=== PATIENT | male | born 1965 | race Caucasian/White ===

== ENCOUNTER 2021-02-20 21:05 | Inpatient (IN) ==
[2021-02-20] MEDS ORDERED: cefTRIAXone SODIUM 2,000 MG/70 ML BAG IV STA (22:38)
--- NOTE | 2021-02-20 22:44 | Emergency Department Note ---
Impression & Plan Cellulitis, Diabetic foot ulcer associated with type 2 diabetes mellitus, Lymphangitis ED Provider Note NAME: EMIR EVANS AGE: 56 SEX: M : 1965 ARRIVES VIA: Walk-In INFORMANT: Patient ED PROVIDER(S): Tristian Price DO CHIEF COMPLAINT: right foot pain HPI: Patient is a 56-year-old male who presents the ER for right foot pain. He notes redness that started within the past 24 to 48 hours. He is having drainage and discharge from his right fifth toe. He notes is also become discolored today. He follows with wound care clinic for the left foot. Denies any headache or change in vision. He admits to chills. No chest pain or shortness of breath. No nausea vomiting or diarrhea. No dysuria urgency or frequency. ROS: See above HPI for pertinent positives & negatives. A total of 10 systems reviewed and were otherwise negative. PAST MEDICAL HISTORY:See Below PAST SURGICAL HISTORY:See Below FAMILY HISTORY:See Below SOCIAL HISTORY:See Below HOME MEDICATIONS:See Below ALLERGIES:See Below VITALS:See Below PHYSICAL EXAMINATION: GENERAL: Sitting up in bed, alert, well appearing, well nourished, no distress, non-toxic EYE EXAM: normal conjunctiva. LUNGS: Clear to auscultation. Normal chest wall mechanics HEART: no murmurs, S1 normal and S2 normal ABDOMEN: abdomen soft, non-tender, normo-active bowel sounds, no masses, no rebound or guarding. UPPER EXTREMITIES: upper extremities are grossly normal. LOWER EXTREMITIES: Right foot with erythema tracking up to the ankle and erythema tracking up in the line above the ankle. Right fifth digit with purple discoloration and green purulent with serous sanguinous drainage coming out of a pinpoint hole at the just proximal to the callus on the right lateral fifth digit NEURO EXAM: Normal sensorium, cranial nerves II-XII grossly intact, normal speech, no gross weakness of arms, no gross weakness of legs. MEDICAL DECISION MAKING: Patient is a 56-year-old male who presents the ER for diabetic foot ulcer on the right toe which is having green purulent drainage. He has erythema of the foot streaking from this toe as well as lymphangitic spread up the vázquez. Labs show mild leukocytosis of 13,000. No significant anemia. BMP with mild hyponatremia 131. LFTs bilirubin was unremarkable. Covid was negative. Patient was given 2 g of Rocephin. He was updated bedside. Culture was taken. X-rays of the right foot question if there is some erosion/osteo-. Patient was discussed hospice admitted for further work-up. Triage Nursing notes reviewed. Limited review of prior medical records performed Vital Signs: reviewed and remarkable for HTN Differential diagnosis: Cellulitis, abscess, MRSA infection, DVT, necrotizing fasciitis, dermatitis, drug eruption, allergic reaction, as well as other pathologies. ER treatment provided: See below Diagnostics interpreted by me: ECG: none Cardiac Monitoring: An order was placed for continuous cardiac monitoring. The monitor shows a rate of 101 with sinus rhythm. Laboratory studies: As stated above and show below. Imaging studies: X-rays of the right fifth toe show some erosive changes of the right distal fifth digit per my read Consultation(s): Discussed with Brenden Wyatt for further evaluation Procedures: none Past Med/Surg History Medical History Corns and callosities Diabetic foot ulcer associated with type 2 diabetes mellitus DM (diabetes mellitus) Type 2 diabetes mellitus with diabetic polyneuropathy Social History Smoking Status: Never smoker Preferred Language: Urdu Visual Impairment: Limited Hearing Ability: Normal Beliefs That Will Affect Care: None Current Living Situation: Other Current Living Situation Comment: lives with girlfriend current occupational status: employed 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 Feels Safe at Home: Yes Allergies Allergies Allergy/AdvReac Type Severity Reaction Status Date / Time No Known Allergies Allergy Unknown Verified 02/20/21 23:18 Home Meds Home Medications Medication Instructions Recorded Confirmed atorvastatin 20 mg tablet 20 mg PO DAILY 12/13/20 02/20/21 lisinopril 5 mg tablet 5 mg PO DAILY 12/13/20 02/20/21 metformin 1,000 mg tablet 1,000 mg PO BID 12/13/20 02/20/21 Results & Data (ED) Vital Signs Vital Signs - 24 hr 02/20/21 21:17 Temperature 37 C Temperature Source Temporal Artery Scan Pulse Rate 105 H Respiratory Rate 20 Respiratory Effort / Characteristics Non-Labored Spontaneous Respiratory Depth Normal Blood Pressure 168/91 H Blood Pressure Mean 116 Pulse Oximetry 97 Oxygen Delivery Method Room Air Sepsis Recent Fever Within 48 Hours No Sepsis New/Unexplained Change in Mental Status No Sepsis Action Taken by Nursing No Action Required Laboratory Data Result diagrams: 02/20/21 22:55 02/20/21 22:55 Lab Results 02/20/21 02/20/21 02/20/21 Range/Units 22:55 22:55 23:00 WBC 13.21 H (4.8-10.8) K/uL RBC 5.00 (4.7-6.1) M/uL Hgb 15.9 (14.0-18.0) g/dL Hct 45.6 (42-52) % MCV 91.2 (80-100) fL MCH 31.8 (25-34) pg MCHC 34.9 (32-36) g/dL RDW Std Deviation 43.1 (36.4-46.3) fL RDW Coeff of Lalitha 13.0 (11.5-14.5) % Plt Count 226 (130-400) K/uL MPV 9.2 (7.4-10.4) fL Immature Gran % (Auto) 0.3 % Neut % (Auto) 79.8 % Lymph % (Auto) 12.0 % [place] % (Auto) 7.4 % Eos % (Auto) 0.3 % Baso % (Auto) 0.2 % Neut # (Auto) 10.55 H (1.4-6.5) K/uL Lymph # (Auto) 1.58 (1.2-3.4) K/uL [place] # (Auto) 0.98 H (0.11-0.59) K/uL Eos # (Auto) 0.04 (0-0.5) K/uL Baso # (Auto) 0.02 (0-0.2) K/uL Immature Gran # (Auto) 0.04 H (0.00-0.02) K/uL Sodium 131 L (136-145) mmol/L Potassium 4.2 (3.5-5.1) mmol/L Chloride 100 (98-107) mmol/L Carbon Dioxide 24 (21-32) mmol/L Anion Gap 7.0 (3-11) BUN 12 (7-18) mg/dl Creatinine 1.01 (0.6-1.4) mg/dl Est Cr Clr Drug Dosing 102.1 ml/min Est GFR ( Amer) 96.6 ml/min Est GFR (Non-Af Amer) 83.3 ml/min BUN/Creatinine Ratio 12.1 (10-20) Glucose 286 H (70-99) mg/dl Calcium 9.2 (8.5-10.1) mg/dl Total Bilirubin 0.7 (0.2-1) mg/dl AST 11 L (15-37) U/L ALT 18 (12-78) U/L Alkaline Phosphatase 102 (45-117) U/L Total Protein 7.9 (6.4-8.2) gm/dl Albumin 3.7 (3.4-5.0) gm/dl Globulin 4.2 H (2.5-4.0) gm/dl Albumin/Globulin Ratio 0.9 (0.9-2) COVID-19 Eval Order Covid19 at [facility] SARS-CoV-2 (PCR) (Negative) 02/20/21 Range/Units 23:00 WBC (4.8-10.8) K/uL RBC (4.7-6.1) M/uL Hgb (14.0-18.0) g/dL Hct (42-52) % MCV (80-100) fL MCH (25-34) pg MCHC (32-36) g/dL RDW Std Deviation (36.4-46.3) fL RDW Coeff of Lalitha (11.5-14.5) % Plt Count (130-400) K/uL MPV (7.4-10.4) fL Immature Gran % (Auto) % Neut % (Auto) % Lymph % (Auto) % [place] % (Auto) % Eos % (Auto) % Baso % (Auto) % Neut # (Auto) (1.4-6.5) K/uL Lymph # (Auto) (1.2-3.4) K/uL [place] # (Auto) (0.11-0.59) K/uL Eos # (Auto) (0-0.5) K/uL Baso # (Auto) (0-0.2) K/uL Immature Gran # (Auto) (0.00-0.02) K/uL Sodium (136-145) mmol/L Potassium (3.5-5.1) mmol/L Chloride (98-107) mmol/L Carbon Dioxide (21-32) mmol/L Anion Gap (3-11) BUN (7-18) mg/dl Creatinine (0.6-1.4) mg/dl Est Cr Clr Drug Dosing ml/min Est GFR ( Amer) ml/min Est GFR (Non-Af Amer) ml/min BUN/Creatinine Ratio (10-20) Glucose (70-99) mg/dl Calcium (8.5-10.1) mg/dl Total Bilirubin (0.2-1) mg/dl AST (15-37) U/L ALT (12-78) U/L Alkaline Phosphatase (45-117) U/L Total Protein (6.4-8.2) gm/dl Albumin (3.4-5.0) gm/dl Globulin (2.5-4.0) gm/dl Albumin/Globulin Ratio (0.9-2) COVID-19 Eval Order SARS-CoV-2 (PCR) NEGATIVE (Negative) Administered Medications Discontinued Medications Ceftriaxone Sodium (Rocephin) 2,000 mg in 70 mls @ 140 mls/hr IV NOW STA Stop: 02/20/21 23:07 Last Infusion: 02/21/21 00:53 Dose: 0 mls/hr Documented by: [id number] Admin: 02/20/21 23:14 Dose: 140 mls/hr Documented by: [id number] Discharge Plan Visit Data Chief Complaint: Toe Injury/Pain Stated Complaint: RT TOE IS BLUE/SWOLLEN ED Provider: Tristian Price Discharge Problem: Cellulitis, Diabetic foot ulcer associated with type 2 diabetes mellitus, Lymphangitis Discharge Instructions Interventions: ED Discharge Assessment Last Done: 02/21/21 01:37 Forms Stand Alone Forms: My [facility] [employer] Prescriptions Prescriptions: No Action atorvastatin 20 mg tablet 20 mg PO DAILY RF: 0 metformin 1,000 mg tablet 1,000 mg PO BID RF: 0 lisinopril 5 mg tablet 5 mg PO DAILY RF: 0 Referrals Referrals: PCP,NO [Physician] -
[2021-02-20 23:10] LABS: Basophils # (auto) 0.02 K/uL (0-0.2); Basophils % (auto) 0.2 %; Eosinophils # (auto) 0.04 K/uL (0-0.5); Eosinophils % (auto) 0.3 %; Hematocrit (blood only) 45.6 % (42-52); Hemoglobin 15.9 g/dL (14.0-18.0); Immature Granulocytes # (auto) 0.04 K/uL (0.00-0.02); Immature Granulocytes % (auto) 0.3 %; Lymphocytes # (auto) 1.58 K/uL (1.2-3.4); Mean Corpuscular Hemoglobin 31.8 pg (25-34); Mean Corpuscular Hgb Conc 34.9 g/dL (32-36); Mean Corpuscular Volume 91.2 fL (80-100); Mean Platelet Volume 9.2 fL (7.4-10.4); Monocytes # (auto) 0.98 K/uL (0.11-0.59); Monocytes % (auto) 7.4 %; Neutrophils # (auto) 10.55 K/uL (1.4-6.5); Neutrophils % (auto) 79.8 %; Platelet Count 226 K/uL (130-400); RDW Standard Deviation 43.1 fL (36.4-46.3); White Blood Count 13.21 K/uL (4.8-10.8)
[2021-02-20 23:28] LABS: Albumin Level 3.7 gm/dl (3.4-5.0); BUN Creatinine Ratio 12.1 (10-20); Calcium 9.2 mg/dl (8.5-10.1); Creatinine Clr Calc Pharmacy 102.1 ml/min; Est GFR (African American) 96.6 ml/min; Est GFR (Non-African American) 83.3 ml/min; Potassium 4.2 mmol/L (3.5-5.1)
[2021-02-20 23:31] LABS: Albumin Globulin Ratio 0.9 (0.9-2); Bilirubin,Total 0.7 mg/dl (0.2-1); Globulin 4.2 gm/dl (2.5-4.0); Total Protein 7.9 gm/dl (6.4-8.2)
[2021-02-21] MEDS ORDERED: PIPERACILL/TAZOBAC CONSULT ACTIVE PRN (02:39)
[2021-02-21] MEDS ORDERED: ONDANSETRON INJ 2 MG/ML 2 ML VIAL IV PRN (02:39)
[2021-02-21] MEDS ORDERED: VANCOMYCIN CONSULT ACTIVE PRN (02:39)
[2021-02-21] MEDS ORDERED: GLUCAGON FOR INJ 1 MG VIAL SQ PRN (02:39)
[2021-02-21] MEDS ORDERED: DEXTROSE 50% 50 ML SYRINGE IV PRN (02:39)
[2021-02-21] MEDS ORDERED: CARBOHYDRATES FOR HYPOGLYCEMIA PO PRN (02:39)
[2021-02-21] MEDS ORDERED: GLUCOSE 40% GEL 15 GM TUBE PO PRN (02:39)
[2021-02-21] MEDS ORDERED: GLUCOSE 10 TABS/TUBE PO PRN (02:39)
--- NOTE | 2021-02-21 03:01 | History & Physical Report ---
Date of Service February 21, 2021 Assessment & Plan (1) Diabetic infection of right foot: Plan: Diabetic foot infection/ascending lymphangitis- X-ray performed and will await radiology interpretation CT of right foot without contrast ordered Received ceftriaxone 2 g IV from the ED Admit on vancomycin IV and Zosyn IV per pharmacokinetic monitoring Follow results of CT scan Patient reports that he was to get a new pair of diabetic shoes fit on Monday, 6 days, in [place] Order lower extremity arterial Doppler (2) DM (diabetes mellitus): Plan: Hold Metformin Place on Accu-Cheks before meals and at bedtime with NovoLog coverage per scale Check hemoglobin A1c (3) Lymphangitis: Plan: Noted and follow (4) Diabetic peripheral neuropathy associated with type 2 diabetes mellitus: Plan: Has not been on active treatment, and should be considered going forward He is supposed to be getting new diabetic shoes and orthopedic shoe store in about 6 days (5) Hypercholesterolemia: Plan: Continue atorvastatin Check a fasting lipid panel (6) Hypertension: Plan: Continue lisinopril 5 mg daily Admission and Anticipated Discharge Date Admission Date: February 21, 2021 History of Present Illness Chief Complaint: The patient presents to the emergency department for right foot pain, redness and swelling worsening over the past 48 hours Primary Care Provider: Louis Stanton DPM, MS The patient is a 56-year-old male with past medical history including diabetes mellitus, peripheral neuropathy, loss of protective sensation of skin of foot, diabetic foot ulcer on left foot, obesity with BMI 36, lower back pain and musculoskeletal pain. He has been following with wound care regarding his left foot, he developed a callus on the base. He reports that about 2 weeks ago he had a bleb open and drain on his right fifth toe, which appeared to heal, but now over the past 48 hours has developed the above symptoms. Allergies Allergy/AdvReac Type Severity Reaction Status Date / Time No Known Allergies Allergy Unknown Verified 02/20/21 23:18 Home Medications Medication Instructions Recorded Confirmed Type atorvastatin 20 mg tablet 20 mg PO DAILY 12/13/20 02/20/21 History lisinopril 5 mg tablet 5 mg PO DAILY 12/13/20 02/20/21 History metformin 1,000 mg tablet 1,000 mg PO BID 12/13/20 02/20/21 History Past Med/Surg History Medical History (Updated 02/21/21 @ 02:57 by Brenden Wyatt MD) Corns and callosities Diabetic foot ulcer associated with type 2 diabetes mellitus DM (diabetes mellitus) Hypercholesterolemia Hypertension Type 2 diabetes mellitus with diabetic polyneuropathy Social History Smoking Status: Never smoker Preferred Language: Ukrainian Visual Impairment: Limited Hearing Ability: Normal Beliefs That Will Affect Care: None Current Living Situation: Other Current Living Situation Comment: lives with girlfriend current occupational status: employed current occupation: [employer] Feels Safe at Home: Yes Review of Systems Review of Systems: The patient denies chest pain, palpitations, shortness of breath, dyspnea on exertion, cough, sore throat, chills, sweats, nausea, vomiting, diarrhea , constipation, abdominal pain, pelvic pain, blood in urine or stool, dysuria, urinary frequency or urgency, lightheadedness, dizziness, headache, memory loss, loss of consciousness, abnormal bruising or bleeding, focal or generalized weakness, numbness or tingling in arms, generalized arthralgias or myalgias, back or neck pain, or night sweats. The review of systems is otherwise negative other than for that already noted above, and at least 10 systems have been reviewed. Physical Exam Physical Exam: The patient is awake, alert and oriented 3, well developed and well nourished, normocephalic and atraumatic, lying in bed and in no acute distress. HEENT--PERRL, EOMI, mucous membranes and oropharynx normal. Neck--supple. No JVD. No bruits. Thyroid normal, trachea midline, no adenopathy. Heart--normal S1 and S2. No murmurs, rubs or gallops. Lungs--clear bilaterally, no respiratory distress, no accessory muscle use. Abdomen--normal bowel sounds and soft. Nontender. Nondistended. Morbidly obese Extremities/ Dermatologic-1+ bilateral pretibial pitting edema, right greater than left. Right lower extremity with erythema along toes and dorsum of right foot, with healing ulcer on right fifth digit laterally, and erythematous streak extending nursing home up anterior vázqeuz Neurologic--cranial nerves II through XII grossly intact. Rheumatologic--normal range of motion. Psychiatric--normal affect. Results & Data Results & Data ([facility]) Vital Signs (Past 12 Hours) Vital Signs Temp Pulse Pulse Resp BP BP Pulse Ox 02/21/21 02:11 99.7 F H 105 H 16 157/88 H 95 02/21/21 01:37 88 18 143/80 H 97 02/20/21 21:17 98.6 F 105 H 20 168/91 H 97 Laboratory Results Laboratory Results WBC 13.21 K/uL (4.8-10.8) H 02/20/21 22:55 RBC 5.00 M/uL (4.7-6.1) 02/20/21 22:55 Hgb 15.9 g/dL (14.0-18.0) 02/20/21 22:55 Hct 45.6 % (42-52) 02/20/21 22:55 MCV 91.2 fL (80-100) 02/20/21 22:55 MCH 31.8 pg (25-34) 02/20/21 22:55 MCHC 34.9 g/dL (32-36) 02/20/21 22:55 RDW Std Deviation 43.1 fL (36.4-46.3) 02/20/21 22:55 RDW Coeff of Lalitha 13.0 % (11.5-14.5) 02/20/21 22:55 Plt Count 226 K/uL (130-400) 02/20/21 22:55 MPV 9.2 fL (7.4-10.4) 02/20/21 22:55 Immature Gran % (Auto) 0.3 % 02/20/21 22:55 Neut % (Auto) 79.8 % 02/20/21 22:55 Lymph % (Auto) 12.0 % 02/20/21 22:55 [place] % (Auto) 7.4 % 02/20/21 22:55 Eos % (Auto) 0.3 % 02/20/21 22:55 Baso % (Auto) 0.2 % 02/20/21 22:55 Neut # (Auto) 10.55 K/uL (1.4-6.5) H 02/20/21 22:55 Lymph # (Auto) 1.58 K/uL (1.2-3.4) 02/20/21 22:55 [place] # (Auto) 0.98 K/uL (0.11-0.59) H 02/20/21 22:55 Eos # (Auto) 0.04 K/uL (0-0.5) 02/20/21 22:55 Baso # (Auto) 0.02 K/uL (0-0.2) 02/20/21 22:55 Immature Gran # (Auto) 0.04 K/uL (0.00-0.02) H 02/20/21 22:55 Sodium 131 mmol/L (136-145) L 02/20/21 22:55 Potassium 4.2 mmol/L (3.5-5.1) 02/20/21 22:55 Chloride 100 mmol/L (98-107) 02/20/21 22:55 Carbon Dioxide 24 mmol/L (21-32) 02/20/21 22:55 Anion Gap 7.0 (3-11) 02/20/21 22:55 BUN 12 mg/dl (7-18) 02/20/21 22:55 Creatinine 1.01 mg/dl (0.6-1.4) 02/20/21 22:55 Est Cr Clr Drug Dosing 102.1 ml/min 02/20/21 22:55 Est GFR ( Amer) 96.6 ml/min 02/20/21 22:55 Est GFR (Non-Af Amer) 83.3 ml/min 02/20/21 22:55 BUN/Creatinine Ratio 12.1 (10-20) 02/20/21 22:55 Glucose 286 mg/dl (70-99) H 02/20/21 22:55 POC Glucose 206 mg/dl (70-99) H 02/21/21 02:15 Calcium 9.2 mg/dl (8.5-10.1) 02/20/21 22:55 Total Bilirubin 0.7 mg/dl (0.2-1) 02/20/21 22:55 AST 11 U/L (15-37) L 02/20/21 22:55 ALT 18 U/L (12-78) 02/20/21 22:55 Alkaline Phosphatase 102 U/L (45-117) 02/20/21 22:55 Total Protein 7.9 gm/dl (6.4-8.2) 02/20/21 22:55 Albumin 3.7 gm/dl (3.4-5.0) 02/20/21 22:55 Globulin 4.2 gm/dl (2.5-4.0) H 02/20/21 22:55 Albumin/Globulin Ratio 0.9 (0.9-2) 02/20/21 22:55 COVID-19 Eval Order Covid19 at [facility] 02/20/21 23:00 SARS-CoV-2 (PCR) NEGATIVE (Negative) 02/20/21 23:00 Code Status & VTE Plan Code Status Full code VTE Prophylaxis Plan VTE Prophylaxis will be ordered: Yes PG Care Time/CCT Total # of Minutes Spent Total Time Spent with Patient: Total time spent is greater than 50% in coordination of care (as documented) at patient's floor/unit and/or counseling patient: Coding Level of Care Code 62708 Initial Inpt Care Lvl 3 Diagnoses Diabetic infection of right foot E11.628; L08.9 DM (diabetes mellitus) E11.9 Diabetes mellitus complication status: without complication 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
[2021-02-21] MEDS ORDERED: VANCOMYCIN HCL 2,250 MG in SODIUM CHLORIDE 0.9% 500 ML IV SCH (03:30)
[2021-02-21] MEDS ORDERED: PIPERACILLIN/TAZOBACTAM 4.5 GM in DEXTROSE 5% 100 ML IV ONE (03:30)
[2021-02-21] MEDS ORDERED: FLUARIX QUADRIVALENT 0.5 ML SYR IM ONE (03:35)
--- NOTE | 2021-02-21 04:36 | Pharmacy Report ---
Pharmacy Abx Initial Consult - Date of Service February 21, 2021 - Pharmacy Dosing Scope Date of Consult: 02/21/21 Consultation requested by: Dr. Wyatt Pharmacy is consulted to initiate VANCOMYCIN/ZOSYN IV dosing therapy, order appropriate labs and adjust drug dose/frequency. - Subjective The patient is a 56 year old M admitted on 02/21/21 01:07. - Objective Height: 5 ft 9 in Weight: 111.9 kg Vital Signs (Past 12hrs): Vital Signs Temp Pulse Pulse Resp BP BP Pulse Ox 02/21/21 02:11 37.6 C H 105 H 16 157/88 H 95 02/21/21 01:37 88 18 143/80 H 97 02/20/21 21:17 37 C 105 H 20 168/91 H 97 Lab Results (24hrs): Laboratory Tests (24 Hours) 02/20/21 02/20/21 22:55 22:55 WBC 13.21 H Neut # (Auto) 10.55 H Creatinine 1.01 Est Cr Clr Drug Dosing 102.1 Micro Results: 02/20/21 22:50 Gram Stain - Pending Toe Wound Culture - Pending - Assessment & Plan Assessment 56 year old M admitted with diabetic foot infection, ordered VANCOMYCIN and ZOSYN. Plan Vancomycin IV * Loading dose: 2250mg (~20 mg/kg) * Maintenance dose: 1250mg IV (~11 mg/kg) every 12 hours * Trough level ordered for 02/23/21 @ 0400. * AUC/MELVIN is the preferred PK/PD target for vancomycin * AUC guided dosing is effective and associated with decreased risk of nephrotoxicity compared to traditional trough targets * The above dose is predicted to achieve target AUC/MELVIN of 400-600 mg/L.hr and may be associated with a 12% risk of nephrotoxicity Pharmacy will continue to follow and will adjust dose/frequency as necessary. Thank you.
--- NOTE | 2021-02-21 05:06 | Pharmacy Report ---
Pharmacy Abx Initial Consult - Date of Service February 21, 2021 - Pharmacy Dosing Scope Date of Consult: 02/21/21 Consultation requested by: Dr. Wyatt Pharmacy is consulted to initiate VANCOMYCIN/ZOSYN IV dosing therapy, order appropriate labs and adjust drug dose/frequency. - Subjective The patient is a 56 year old M admitted on 02/21/21 01:07. - Objective Height: 5 ft 9 in Weight: 111.9 kg Vital Signs (Past 12hrs): Vital Signs Temp Pulse Pulse Resp BP BP Pulse Ox 02/21/21 02:11 37.6 C H 105 H 16 157/88 H 95 02/21/21 01:37 88 18 143/80 H 97 02/20/21 21:17 37 C 105 H 20 168/91 H 97 Lab Results (24hrs): Laboratory Tests (24 Hours) 02/20/21 02/20/21 22:55 22:55 WBC 13.21 H Neut # (Auto) 10.55 H Creatinine 1.01 Est Cr Clr Drug Dosing 102.1 Micro Results: 02/20/21 22:50 Gram Stain - Pending Toe Wound Culture - Pending - Assessment & Plan Assessment 56 year old M [] Plan [] for treatment of [Indication] Vancomycin IV * Estimated PK Parameters: Vd [] L/kg, Angel Luis [] hr-1, t1/2 [] hr * Loading dose: [] mg ([] mg/kg) * Maintenance dose: [] mg IV ([] mg/kg) every [] hours * Goal trough level for [indication] : [] to [] mcg/mL * Trough/Random level ordered for []/[]/[] * A less than traditional dose and/or extended dosing interval has/have been selected due to likelihood of drug accumulation in obese patient/patient with h/o CKD. Piperacillin/tazobactam * [] g bolus administered over 30 minutes, then [] g IV extended infusion every 8 hours for CrCl greater than 20 mL/min OR every 12 hours for CrCl 20 mL/min or less and dialysis. * Aggressive dosing selected due to critically ill status/BMI 35 or more/history of cystic fibrosis. Tobramycin/Gentamicin/Amikacin * Patient meets criteria for extended-interval aminoglycoside dosing per the Sevier nomogram * Dose: [] mg (7 mg/kg) or (15 mg/kg) IV every [] hours * Dosage based on adjusted body weight for patients weighing > 120% of ideal body weight. * Random level ordered for 6-14 hours after the start of the infusion to ensure dosing interval is appropriate. Tobramycin/Gentamicin/Amikacin * Patient is not a candidate for extended-interval dosing due to age/CrCl less than 20 mL/min/end stage renal disease/dialysis/fluctuating kidney function/treatment of Enterococcal endocarditis OR altered pharmacokinetics in the setting of /ascites/significant blood/cystic fibrosis. * Dose: [] mg ([] mg/kg) IV every [] hours * Dosage based on adjusted body weight for patients weighing > 120% of ideal body weight. * Goal trough level for [indication] : [] to [] mcg/mL * Goal peak level for [indication] : [] to [] mcg/mL * Peak and trough level ordered for []/[]/[] around the [] dose. Pharmacy will continue to follow and will adjust dose/frequency as necessary. Thank you.
[2021-02-21 07:23] LABS: Chol HDL Ratio 2; Cholesterol 147 mg/dl (0-200); HDL Cholesterol 73 mg/dl; LDL Cholesterol Calculated 60 mg/dl; Triglycerides 72 mg/dl (0-150); VLDL Cholesterol 14 mg/dl
[2021-02-21 08:24] LABS: Appearance Urine Clear (Clear); Bacteria Urine Automated Negative (Negative); Bilirubin Urine Negative (Negative); Blood Urine Trace (Negative); Cast Urine Automated 0 /lpf (0-5); Color Urine Yellow; Epithelial Cell Urine Auto 20-30 /lpf (0-5); Glucose Urine UA 3+ (Negative); Ketones Urine 2+ (Negative); Leukocyte Esterase Urine Negative (Negative); Nitrite Urine Negative (Negative); Protein Urine 1+ (Negative); RBC Urine Automated 0-4 /hpf (0-4); Urobilinogen Urine Negative (Negative)
--- NOTE | 2021-02-21 09:13 | XRay Report ---
XR toe(s) RT min 2V CLINICAL HISTORY: Right fifth toe diabetic ulcer. COMPARISON: Right foot radiographs November 05, 2020. FINDINGS: Note is made of soft tissue swelling of the right fifth toe. There is also soft tissue gas . There has been interval development of bony erosion of the lateral aspect of the distal phalanx of the right fifth toe since radiographs of November 05, 2020. No fracture. No radiopaque foreign bodies are identified. IMPRESSION: 1. Interval development of bony erosion of the lateral aspect of the distal phalanx of the right fift h toe since prior radiographs. This is consistent with osteomyelitis. 2. Right fifth toe soft tissue swelling. Soft tissue gas. Although this could be related to the open wound, a gas-forming infectious process could appear similar. ACT 112: Negative or not required by law. Electronically signed by: Mike Rios M.D. 02/21/2021 9:12 AM
--- NOTE | 2021-02-21 09:23 | CT Scan Report ---
CT foot RT wo con CLINICAL HISTORY: diabetic foot infection COMPARISON STUDY: Right foot radiographs November 05, 2020. Right fifth toe radiographs February 20, 2021. TECHNIQUE: Axial images of the right foot were obtained without intravenous contrast. Sagittal and co jeff reconstructions were viewed. Automated exposure control was utilized for the study. A dose low ering technique was utilized adhering to the principles of ALARA. FINDINGS: Tarsometatarsal joints are intact. Note is made of soft tissue swelling of the right fifth toe. Multiple locules of soft tissue gas within the right fifth toe are noted. There is erosion of th e lateral base of the distal phalanx of the right fifth toe. Note is made of irregularity and lucency of the distal aspect of the proximal phalanx of the right fourth toe. The appearance favors a healin g fracture. No additional sites of bony destruction are present within the right foot. IMPRESSION: 1. Erosion of the lateral base of the distal phalanx of the right fifth toe consistent with acute ost eomyelitis. 2. Right fifth toe soft tissue swelling. Soft tissue gas. Although this could be related to the wound , the findings raise the possibility of a gas-forming infectious process. 3. Findings suggestive of a healing fracture of the distal aspect of the proximal phalanx of the righ t fourth toe. Superimposed osteomyelitis would be difficult to completely exclude. ACT 112: Negative or not required by law. Electronically signed by: Mike Rios M.D. 02/21/2021 9:21 AM
--- NOTE | 2021-02-21 10:28 | Ultrasound Report ---
RIGHT LOWER EXTREMITY ARTERIAL DOPPLER ULTRASOUND CLINICAL HISTORY: diabetic foot infection COMPARISON STUDY: No previous studies for comparison. TECHNIQUE: Grayscale, color and duplex Doppler sonography of the arterial system of the right lower e xtremity was performed. Ankle to brachial indices could not be obtained due to patient pain. FINDINGS: No elevated velocities were identified within the right lower extremity. Biphasic and triph asic flow throughout the right lower extremity was noted. The right common femoral, superficial femor al, popliteal, anterior tibial, posterior tibial and peroneal vessels were patent. Mild atherosclerot ic plaque was noted. IMPRESSION: 1. No evidence for a hemodynamically significant stenosis within the right lower extremity. Mild athe rosclerotic plaque. 2. Biphasic and triphasic flow within the right lower extremity. ACT 112: Negative or not required by law. Electronically signed by: Mike Rios M.D. 02/21/2021 10:27 AM
[2021-02-21] MEDS: ATORVASTATIN 20 MG TAB PO SCH (10:31)
[2021-02-21] MEDS: lisinopril 5 MG TAB PO SCH (10:32)
[2021-02-21] MEDS: INSULIN ASPART 100 UNITS/ML 3 ML PEN SC SCH ×4 (10:33→20:12)
[2021-02-21] MEDS: ENOXAPARIN INJ 40 MG/0.4 ML SYR SQ SCH (10:39)
[2021-02-21] MEDS: PIPERACILLIN/TAZOBACTAM 4.5 GM in DEXTROSE 5% 100 ML IV SCH ×2 (10:48→18:29)
[2021-02-21] MEDS: VANCOMYCIN HCL 1,250 MG in SODIUM CHLORIDE 0.9% 250 ML IV SCH (18:44)
--- NOTE | 2021-02-21 19:20 | Hospitalist Progress Note ---
Date of Service February 21, 2021 Assessment & Plan (1) Diabetic infection of right foot: Plan: Diabetic foot infection/ascending lymphangitis- X-ray and CT of the right foot concerning for osteomyelitis versus gas gangrene of the fifth right toe Day 2 of ceftriaxone, vancomycin, and Zosyn. Orthopedics consulted. Discussed concern with patient including possible gas gangrene Glycemic consult Await A1c Emphasized importance of diabetic control with the patient (2) DM (diabetes mellitus): Plan: Hold Metformin Place on Accu-Cheks before meals and at bedtime with NovoLog coverage per scale Awaiting results for current hemoglobin A1c Glycemic consult from pharmacy requested Also requested consult with mortgage loan originator (3) Lymphangitis: Plan: Noted and follow (4) Diabetic peripheral neuropathy associated with type 2 diabetes mellitus: Plan: Has not been on active treatment, and should be considered going forward He is supposed to be getting new diabetic shoes and orthopedic shoe store in about [address] Louis Stanton for podiatry (5) Hypercholesterolemia: Plan: Continue atorvastatin (6) Hypertension: Plan: Continue lisinopril 5 mg daily Admission and Anticipated Discharge Date Admission Date: February 21, 2021 Subjective Attending: Dr. Jhaveri Patient seen and examined at bedside. He denies any fever or chills. He denies any significant pain to open wounds on his feet. Hemoglobin A1c has been elevated in the 9% range for the last 5 years according to the patient. He is only on Metformin at home. He denies any previous insulin use. He reports that he had an appointment with podiatry tomorrow for routine foot care with Dr. Louis Stanton. Patient denies any fever, chills, sweats, rigors. Pain is well controlled. No shortness of breath. No nausea or vomiting. No other acute complaints. Review of Systems Review of Systems: All systems reviewed & are unremarkable except as noted in Subjective Physical Exam Physical Exam: GENERAL : No acute distress. Does not appear to be in any pain EYES: No icterus, gaze conjugate NOSE: No evidence of epistaxis MOUTH: No lesions or candidiasis NECK: Supple LUNGS: CTA B/L, no wheezes, rales or rhonchi HEART: Regular, rate controlled ABDOMEN: Soft, NT, ND, BS Present EXTREMITIES: No LE edema, pedal pulses intact and equal bilaterally. Bandage taken off of right fifth metatarsal. Flesh is "meaty" with good blood flow. Concerning for osteomyelitis. No considerable pain with palpation of wound. NEURO: A&OX3 Results & Data Results & Data ([facility]) Vital Signs (Past 12 Hours) Vital Signs Temp Pulse Resp BP Pulse Ox 02/21/21 16:00 37.1 C 91 H 20 152/88 H 96 02/21/21 07:30 36.9 C 83 18 126/78 93 Laboratory Results 02/20/21 22:55 02/20/21 22:55 Diagnostic Findings Toe X-Ray 02/20/21 22:38 XR toe(s) RT min 2V CLINICAL HISTORY: Right fifth toe diabetic ulcer. COMPARISON: Right foot radiographs November 05, 2020. FINDINGS: Note is made of soft tissue swelling of the right fifth toe. There is also soft tissue gas. There has been interval development of bony erosion of the lateral aspect of the distal phalanx of the right fifth toe since radiographs of November 05, 2020. No fracture. No radiopaque foreign bodies are identified. IMPRESSION: 1. Interval development of bony erosion of the lateral aspect of the distal phalanx of the right fifth toe since prior radiographs. This is consistent with osteomyelitis. 2. Right fifth toe soft tissue swelling. Soft tissue gas. Although this could be related to the open wound, a gas-forming infectious process could appear similar. ACT 112: Negative or not required by law. Electronically signed by: Mike Rios M.D. 02/21/2021 9:[address] 02/21/21 01:05 CT foot RT wo con CLINICAL HISTORY: diabetic foot infection COMPARISON STUDY: Right foot radiographs November 05, 2020. Right fifth toe radiographs February 20, 2021. TECHNIQUE: Axial images of the right foot were obtained without intravenous co ntrast. Sagittal and coronal reconstructions were viewed. Automated exposure control was utilized for the study. A dose lowering technique was utilized adhering to the principles of ALARA. FINDINGS: Tarsometatarsal joints are intact. Note is made of soft tissue swelling of the right fifth toe. Multiple locules of soft tissue gas within the right fifth toe are noted. There is erosion of the lateral base of the distal phalanx of the right fifth toe. Note is made of irregularity and lucency of the distal aspect of the proximal phalanx of the right fourth toe. The appearance favors a healing fracture. No additional sites of bony destruction are present within the right foot. IMPRESSION: 1. Erosion of the lateral base of the distal phalanx of the right fifth toe consistent with acute osteomyelitis. 2. Right fifth toe soft tissue swelling. Soft tissue gas. Although this could be related to the wound, the findings raise the possibility of a gas-forming infectious process. 3. Findings suggestive of a healing fracture of the distal aspect of the proximal phalanx of the right fourth toe. Superimposed osteomyelitis would be difficult to completely exclude. ACT 112: Negative or not required by law. Electronically signed by: Mike Rios M.D. 02/21/2021 9:21 AM Duplex Scan Lower Extremity Artery 02/21/21 03:00 RIGHT LOWER EXTREMITY ARTERIAL DOPPLER ULTRASOUND CLINICAL HISTORY: diabetic foot infection COMPARISON STUDY: No previous studies for comparison. TECHNIQUE: Grayscale, color and duplex Doppler sonography of the arterial system of the right lower extremity was performed. Ankle to brachial indices could not be obtained due to patient pain. FINDINGS: No elevated velocities were identified within the right lower extremity. Biphasic and triphasic flow throughout the right lower extremity was noted. The right common femoral, superficial femoral, popliteal, anterior tibial, posterior tibial and peroneal vessels were patent. Mild atherosclerotic plaque was noted. IMPRESSION: 1. No evidence for a hemodynamically significant stenosis within the right lower extremity. Mild atherosclerotic plaque. 2. Biphasic and triphasic flow within the right lower extremity. ACT 112: Negative or not required by law. Electronically signed by: Mike Rios M.D. 02/21/2021 10:[address] foot RT wo con CLINICAL HISTORY: diabetic foot infection COMPARISON STUDY: Right foot radiographs November 05, 2020. Right fifth toe radiographs February 20, 2021. TECHNIQUE: Axial images of the right foot were obtained without intravenous contrast. Sagittal and coronal reconstructions were viewed. Automated exposure control was utilized for the study. A dose lowering technique was utilized adhering to the principles of ALARA. FINDINGS: Tarsometatarsal joints are intact. Note is made of soft tissue sw elling of the right fifth toe. Multiple locules of soft tissue gas within the right fifth toe are noted. There is erosion of the lateral base of the distal phalanx of the right fifth toe. Note is made of irregularity and lucency of the distal aspect of the proximal phalanx of the right fourth toe. The appearance favors a healing fracture. No additional sites of bony destruction are present within the right foot. IMPRESSION: 1. Erosion of the lateral base of the distal phalanx of the right fifth toe consistent with acute osteomyelitis. 2. Right fifth toe soft tissue swelling. Soft tissue gas. Although this could be related to the wound, the findings raise the possibility of a gas-forming infectious process. 3. Findings suggestive of a healing fracture of the distal aspect of the proximal phalanx of the right fourth toe. Superimposed osteomyelitis would be difficult to completely exclude. ACT 112: Negative or not required by law. Electronically signed by: Mike Rios M.D. 02/21/2021 9:21 AM PG Care Time/CCT Total # of Minutes Spent Total Time Spent with Patient: Total time spent is greater than 50% in coordination of care (as documented) at patient's floor/unit and/or counseling patient:35 minutes Coding Level of Care Code 30186 Subseq [facility] 3 Diagnoses Diabetic infection of right foot E11.628; L08.9 DM (diabetes mellitus) E11.9 Diabetes mellitus complication status: without complication Diabetes mellitus long term care social worker insulin use: without long term care social worker use Diabetes mellitus type: type 2 Lymphangitis I89.1 Diabetic peripheral neuropathy associated with type 2 diabetes mellitus E11.42 Hypercholesterolemia E78.00 Hypertension I10 Time Spent (min) 35 (1) DM (diabetes mellitus) Diabetes mellitus complication status: without complication Diabetes mellitus jail insulin use: without jail use Diabetes mellitus type: type 2 Qualified Code(s): E11.9 - Type 2 diabetes mellitus without complications
[2021-02-21] MEDS ORDERED: PHARMACY GLYCEMIC MGMT CONSULT PRN (19:31)
[2021-02-21] MEDS ORDERED: INSULIN GLARGINE SOLOSTAR 100 UNITS/ML 3 ML PEN SC SCH (21:00)
[2021-02-21] MEDS: ACETAMINOPHEN 325 MG TAB PO PRN (22:29)
[2021-02-22] MEDS: INSULIN ASPART 100 UNITS/ML 3 ML PEN SC SCH ×8 (00:13→21:37)
[2021-02-22] MEDS: PIPERACILLIN/TAZOBACTAM 4.5 GM in DEXTROSE 5% 100 ML IV SCH ×4 (00:14→23:15)
[2021-02-22] MEDS: VANCOMYCIN HCL 1,250 MG in SODIUM CHLORIDE 0.9% 250 ML IV SCH ×2 (04:10→16:14)
[2021-02-22 07:38] LABS: Basophils # (auto) 0.02 K/uL (0-0.2); Basophils % (auto) 0.3 %; Eosinophils # (auto) 0.04 K/uL (0-0.5); Eosinophils % (auto) 0.6 %; Hematocrit (blood only) 42.2 % (42-52); Hemoglobin 14.7 g/dL (14.0-18.0); Immature Granulocytes # (auto) 0.01 K/uL (0.00-0.02); Immature Granulocytes % (auto) 0.1 %; Lymphocytes # (auto) 1.26 K/uL (1.2-3.4); Mean Corpuscular Hemoglobin 31.7 pg (25-34); Mean Corpuscular Hgb Conc 34.8 g/dL (32-36); Mean Corpuscular Volume 91.1 fL (80-100); Mean Platelet Volume 9.3 fL (7.4-10.4); Monocytes % (auto) 14.3 %; Neutrophils # (auto) 4.67 K/uL (1.4-6.5); Neutrophils % (auto) 66.7 %; Platelet Count 237 K/uL (130-400); RDW Standard Deviation 43.5 fL (36.4-46.3); Red Blood Count 4.63 M/uL (4.7-6.1)
[2021-02-22 07:43] LABS: Estimated Average Glucose 252 mg/dl; Hemoglobin A1C 10.4 % (4.5-5.6)
[2021-02-22 07:50] LABS: Albumin Level 3.1 gm/dl (3.4-5.0); Est GFR (African American) 92.2 ml/min; Est GFR (Non-African American) 79.5 ml/min; Potassium 4.1 mmol/L (3.5-5.1)
[2021-02-22] MEDS: lisinopril 5 MG TAB PO SCH (07:50)
[2021-02-22] MEDS: ATORVASTATIN 20 MG TAB PO SCH (07:50)
[2021-02-22] MEDS: ENOXAPARIN INJ 40 MG/0.4 ML SYR SQ SCH (07:51)
[2021-02-22 07:53] LABS: Albumin Globulin Ratio 0.7 (0.9-2); Bilirubin,Total 0.8 mg/dl (0.2-1); Globulin 4.3 gm/dl (2.5-4.0); Total Protein 7.4 gm/dl (6.4-8.2)
[2021-02-22] MEDS ORDERED: INSULIN GLARGINE SOLOSTAR 100 UNITS/ML 3 ML PEN SC SCH (09:00)
--- NOTE | 2021-02-22 09:37 | Pharmacy Report ---
Pharmacy Glycemic Short Note 2 - Date of Service February 22, 2021 - Glycemic Short BSG Results (Last 24 hours): 02/21/21 02/21/21 02/21/21 12:24 17:18 20:09 Glucose POC Glucose 235 H 223 H 276 H 02/22/21 02/22/21 02/22/21 00:10 04:04 06:57 Glucose 163 H POC Glucose 149 H 169 H 02/22/21 08:25 Glucose POC Glucose 147 H OUTPATIENT ANTIDIABETIC REGIMEN: * Metformin 1000 mg PO BIDM * HbA1c: 10.4% (02/21/21) ASSESSMENT: * RAI is a 56 year old male admitted on 02/21/21 for IV antibiotic treatment of right diabetic foot infection with concern for osteomyelitis * Broad spectrum antibiotics (vancomycin/Zosyn) initiated * BSGs elevated yesterday (168, 235, 223, 276 mg/dL), pharmacy consulted last evening * Basal ordered at that time and Novolog parameters tightened * BSGs trended down nicely overnight, 147 mg/dL this morning * Patient now NPO at lunchtime today pending orthopedic consult PLAN FOR INPATIENT GLYCEMIC CONTROL: * Hold outpatient oral diabetes medications * Basal insulin * Lantus 15 units SC daily * Lantus scale 5-25 units SC HS (see EHR for details) * Bolus insulin * NovoLog per scale ACHS or Q6hrs while NPO * Goal Range: Low 110 mg/dL - High 140 mg/dL * Correction Factor: 20 mg/dL/unit * Nutritional / Prandial insulin per carb ratio of 1 unit per 6 grams CHO consumed PLAN FOR DISCHARGE: * HbA1c: 10.4% is significantly above goal of less than 7% (especially in light of diabetic foot infection) * For HbA1c > 10%, consider triple therapy with metformin + basal insulin + (GLP1-RA OR prandial insulin). * Will follow insulin needs and make recommendations as appropriate
--- NOTE | 2021-02-22 14:33 | Hospitalist Progress Note ---
Date of Service February 22, 2021 Assessment & Plan (1) Diabetic infection of right foot: Plan: Diabetic foot infection/ascending lymphangitis- X-ray and CT of the right foot concerning for osteomyelitis versus gas gangrene of the fifth right toe Day 3 of vancomycin, and Zosyn. Culture with many gram+ cocci - culture needs reincubating as there is only pin point growth Orthopedics consulted. Discussed concern with patient including possible gas gangrene Glycemic consult as well as telehealth nurse educator consult A1c is 10.4% Emphasized importance of diabetic control with the patient (2) DM (diabetes mellitus): Plan: Hold Metformin Place on Accu-Cheks before meals and at bedtime with NovoLog coverage per scale Hemoglobin A1c 10.4% Glycemic consult from pharmacy requested Also requested consult with sider mechanic Suggest outpatient follow-up with endocrinology Hold outpatient oral diabetes medications Basal insulin: Lantus 15 units SC daily Lantus scale 5-25 units SC HS (see EHR for details) Bolus insulin: NovoLog per scale ACHS or Q6hrs while NPO Goal Range: Low 110 mg/dL - High 140 mg/dL Correction Factor: 20 mg/dL/unit Nutritional / Prandial insulin per carb ratio of 1 unit per 6 grams CHO consumed PLAN FOR DISCHARGE: HbA1c: 10.4% is significantly above goal of less than 7% (especially in light of diabetic foot infection) For HbA1c > 10%, consider triple therapy with metformin + basal insulin + (GLP1- RA OR prandial insulin). Will follow insulin needs and make recommendations as appropriate (3) Diabetic peripheral neuropathy associated with type 2 diabetes mellitus: Plan: Has not been on active treatment, and should be considered going forward but does not complain of pain He is supposed to be getting new diabetic shoes and orthopedic shoe store in about [address] Louis Stanton for podiatry Diabetic education consulted for better diabetic control (4) Hypercholesterolemia: Plan: Continue atorvastatin (5) Hypertension: Plan: Continue lisinopril 5 mg daily Hemodynamically stable Admission and Anticipated Discharge Date Admission Date: February 21, 2021 Supervising Physician Co-Signing Physician Notes PA Supervision Note: I did not personally see or examine the patient today, but I verified all cedeno points of DOLORES Murray's assessment and plan with the following exceptions/additions: None Subjective Attending: Dr. Diaz Patient seen and examined at bedside. He has no complaints of fever, chills, sweats, rigors. He denies any significant pain to his right foot or toes. He has no specific complaints. Review of Systems Review of Systems: All systems reviewed & are unremarkable except as noted in Subjective Physical Exam Physical Exam: GENERAL : No acute distress EYES: No icterus, gaze conjugate NOSE: No evidence of epistaxis MOUTH: No lesions or candidiasis NECK: Supple LUNGS: CTA B/L, no wheezes, rales or rhonchi HEART: Regular, rate controlled ABDOMEN: Soft, NT, ND, BS Present EXTREMITIES: No LE edema, pedal pulses intact and equal bilaterally. Right fifth toe continues to appear macerated. Stephens red in color. No specific pain with light palpation. NEURO: A&OX3 Results & Data Results & Data ([facility]) Vital Signs (Past 12 Hours) Vital Signs Temp Pulse Resp BP Pulse Ox 02/22/21 05:49 37.0 C 80 16 145/86 H 95 Laboratory Results 02/22/21 06:57 02/22/21 06:57 Diagnostic Findings No further diagnostics PG Care Time/CCT Total # of Minutes Spent Total Time Spent with Patient: Total time spent is greater than 50% in coordination of care (as documented) at patient's floor/unit and/or counseling patient:30 minutes Coding Level of Care Code 00537 Subseq Hosp Care Lvl 2 Diagnoses Diabetic infection of right foot E11.628; L08.9 DM (diabetes mellitus) E11.9 Diabetes mellitus complication status: without complication Diabetes mellitus mcfp insulin use: without termite control service representative use Diabetes mellitus type: type 2 Diabetic peripheral neuropathy associated with type 2 diabetes mellitus E11.42 Hypercholesterolemia E78.00 Hypertension I10 Time Spent (min) 30 (1) DM (diabetes mellitus) Diabetes mellitus complication status: without complication Diabetes mellitus termite control service representative insulin use: without mcfp use Diabetes mellitus type: type 2 Qualified Code(s): E11.9 - Type 2 diabetes mellitus without complications
--- NOTE | 2021-02-22 17:10 | Orthopedic Consultation ---
Date of Consultation February 22, 2021 Assessment & Plan (1) Diabetic infection of right foot: Diabetic infection right foot involving fifth toe with osteomyelitis with chronic infection by history. Most likely is going to require a toe amputation and long-term IV antibiotics. I discussed the my consult Dr. Jermaine Eugene foot and ankle specialist to manage the condition and he said he could perform surgery Monday. Continue IV antibiotics pending surgery. History of Present Illness Reason for Consultation: Right toe infection Attending Physician: Meredith Diaz MD History of Present Illness 56-year-old male who said he had a blister on his toe he cannot remember over 3 weeks maybe 4 weeks or longer. He said he was on antibiotics for healing wound over the plantar aspect of his MTP joint of his great toe on his left foot which was healing nicely. He did see a healthcare provider for that left foot but he does not recall the name. He said he had a blister on the right foot same time he had the ulcer on his left foot. There has been progression over time now with swelling drainage discoloration of the toe. Allergies Allergy/AdvReac Type Severity Reaction Status Date / Time No Known Allergies Allergy Unknown Verified 02/20/21 23:18 Home Medications Medication Instructions Recorded Confirmed Type atorvastatin 20 mg tablet 20 mg PO DAILY 12/13/20 02/20/21 History lisinopril 5 mg tablet 5 mg PO DAILY 12/13/20 02/20/21 History metformin 1,000 mg tablet 1,000 mg PO BID 12/13/20 02/20/21 History Patient History Medical History Corns and callosities Diabetic foot ulcer associated with type 2 diabetes mellitus DM (diabetes mellitus) Hypercholesterolemia Hypertension Type 2 diabetes mellitus with diabetic polyneuropathy Social History Smoking Status: Never smoker Hx Alcohol Use: No Hx Substance Use: No Preferred Language: Pakistani Communication Ability: Effective Visual Impairment: Limited Hearing Ability: Normal Rubber Molder Required: No Beliefs That Will Affect Care: None marital status: Single Current Living Situation: Spouse Current Living Situation Comment: lives at home with girlfriendTory current occupational status: employed 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 Does not have any significant pain. Physical Exam Physical Exam: There is a slight purple discoloration of the plantar aspect of the fifth toe of the right foot with chronic swelling twice the size of his normal toe size and skin on the lateral side of the small toe with drainage. There is edematous infected type tissue around the nailbed. There is nail discoloration. There is some chronic erythema of the toe. No proximal spreading erythema. The fourth toe looks completely normal with normal capillary refill and no pain or tenderness or swelling. His left foot there is a healing ulcer over the metatarsal phalangeal joint plantar arch of the foot still with a scab over that area but no drainage no signs of active infection of the left foot. Results & Data ([facility]) Vital Signs (Past 12 Hours) Vital Signs Temp Pulse Resp BP Pulse Ox 02/22/21 16:00 36.8 C 82 20 137/84 97 02/22/21 05:49 37.0 C 80 16 145/86 H 95 Laboratory Results White count [address] scan has gas bone erosion fifth toe lateral base distal phalanx and probable healed old fracture fourth toe proximal phalanx
[2021-02-22] MEDS: INSULIN GLARGINE SOLOSTAR 100 UNITS/ML 3 ML PEN SC SCH (21:38)
[2021-02-23] MEDS ORDERED: VANCOMYCIN TROUGH ONE (03:30)
[2021-02-23] MEDS: VANCOMYCIN HCL 1,250 MG in SODIUM CHLORIDE 0.9% 250 ML IV SCH ×2 (03:54→04:05)
[2021-02-23 06:38] LABS: Basophils # (auto) 0.03 K/uL (0-0.2); Basophils % (auto) 0.4 %; Eosinophils # (auto) 0.15 K/uL (0-0.5); Eosinophils % (auto) 2.1 %; Hematocrit (blood only) 42.7 % (42-52); Hemoglobin 14.7 g/dL (14.0-18.0); Immature Granulocytes # (auto) 0.01 K/uL (0.00-0.02); Immature Granulocytes % (auto) 0.1 %; Lymphocytes # (auto) 1.64 K/uL (1.2-3.4); Lymphocytes % (auto) 22.5 %; Mean Corpuscular Hemoglobin 31.4 pg (25-34); Mean Corpuscular Hgb Conc 34.4 g/dL (32-36); Mean Corpuscular Volume 91.2 fL (80-100); Mean Platelet Volume 8.8 fL (7.4-10.4); Monocytes # (auto) 1.06 K/uL (0.11-0.59); Monocytes % (auto) 14.5 %; Neutrophils % (auto) 60.4 %; Platelet Count 238 K/uL (130-400); RDW Standard Deviation 43.2 fL (36.4-46.3); Red Blood Count 4.68 M/uL (4.7-6.1); White Blood Count 7.29 K/uL (4.8-10.8)
[2021-02-23 07:00] LABS: Partial Thromboplastin Ratio 1.4; Partial Thromboplastin Time 36.1 Seconds (21.0-31.0); Prothrombin Time 9.9 Seconds (9.0-12.0)
[2021-02-23 07:13] LABS: BUN Creatinine Ratio 8.6 (10-20); Creatinine Clr Calc Pharmacy 115.6 ml/min; Est GFR (African American) 111.6 ml/min; Est GFR (Non-African American) 96.3 ml/min; Potassium 3.6 mmol/L (3.5-5.1)
[2021-02-23 07:16] LABS: Albumin Globulin Ratio 0.7 (0.9-2); Bilirubin,Total 0.4 mg/dl (0.2-1); Globulin 4.2 gm/dl (2.5-4.0); Total Protein 7.2 gm/dl (6.4-8.2)
--- NOTE | 2021-02-23 08:30 | Pharmacy Report ---
Pharmacy Vanc AUC Short Note - Date of Service February 23, 2021 - Assessment & Plan Assessment 56 year old M receiving empiric vancomycin and Zosyn for treatment of right diabetic foot infection. Pertinent microbiologic data includes: toe culture gram stain showing moderate WBCs and many gram-positive cocci, pin point growth (reincubating) Day # 3 of antimicrobial therapy. Ortho consulted, patient will likely require toe amputation w/ long-term antibiotics. Possible OR Monday. Plan Vancomycin * AUC/MELVIN is the preferred PK/PD target for vancomycin * AUC guided dosing is effective and associated with decreased risk of nephrotoxicity compared to traditional trough targets * Trough level of 9.8 mcg/mL is NOT predicted to achieve target AUC/MELVIN of 400- 600 mg/L.hr * Change to 1500 mg IV every 12 hours is predicted to achieve target AUC/MELVIN of 400-600 mg/L.hr and may be associated with a 7 % risk of nephrotoxicity * Trough level ordered for: 02/25/21 Zosyn * 4.5 g IV q8h remains appropriate based on renal function and BMI Pharmacy will continue to follow and will adjust dose/frequency as necessary. Thank you.
[2021-02-23] MEDS ORDERED: INSULIN GLARGINE SOLOSTAR 100 UNITS/ML 3 ML PEN SC SCH (09:00)
[2021-02-23] MEDS: PIPERACILLIN/TAZOBACTAM 4.5 GM in DEXTROSE 5% 100 ML IV SCH ×3 (09:27→23:06)
[2021-02-23] MEDS: ATORVASTATIN 20 MG TAB PO SCH (09:29)
[2021-02-23] MEDS: ENOXAPARIN INJ 40 MG/0.4 ML SYR SQ SCH (09:29)
[2021-02-23] MEDS: lisinopril 5 MG TAB PO SCH (09:29)
[2021-02-23] MEDS: INSULIN ASPART 100 UNITS/ML 3 ML PEN SC SCH ×4 (09:34→21:23)
[2021-02-23] MEDS: VANCOMYCIN HCL 1,500 MG in SODIUM CHLORIDE 0.9% 500 ML IV SCH ×2 (12:09→23:06)
--- NOTE | 2021-02-23 13:51 | Anesthesiology Consultation ---
Date of Service February 23, 2021 Assessment & Plan (1) Encounter for pre-operative examination: Chart Review Chart Review: Acceptable Risk for Surgery and Patient NOT seen in Pre Admission Testing covid neg 02/20/21. Will order routine ECG. Consults Requested none History Surgery Operation Date: 02/24/21 07:00 Proposed Procedures p Right 5th Toe Incision and Drainage - Naun Eugene DO s Possible Amputation - Naun Eugene DO Height/Weight Height: 5 ft 9 in Weight: 111.9 kg Allergies Allergy/AdvReac Type Severity Reaction Status Date / Time No Known Allergies Allergy Unknown Verified 02/20/21 23:18 Medications Home Medications Medication Instructions Recorded Confirmed Last Taken atorvastatin 20 mg tablet 20 mg PO DAILY 12/13/20 02/20/21 02/20/21 lisinopril 5 mg tablet 5 mg PO DAILY 12/13/20 02/20/21 02/20/21 metformin 1,000 mg tablet 1,000 mg PO BID 12/13/20 02/20/21 02/20/21 Active Medications Generic Name Dose Route Start Last Admin Trade Name Freq PRN Reason Stop Dose Admin Acetaminophen 650 mg 02/21/21 02:39 02/21/21 22:29 Acetaminophen 325 Mg Tab PO 03/23/21 02:38 650 mg Q4H PRN Administration pain/fever Atorvastatin Calcium 20 mg 02/21/21 09:00 02/23/21 09:29 Atorvastatin 20 Mg Tab PO 03/23/21 08:59 20 mg DAILY STARR Administration Enoxaparin Sodium 40 mg 02/21/21 09:00 02/23/21 09:29 Enoxaparin Inj 40 Mg/0.4 Ml Syr SQ 03/23/21 08:59 40 mg Q24H STARR Administration Piperacillin Sod/Tazobactam 120 mls @ 30 mls/hr 02/21/21 08:00 02/23/21 13:16 Sod 4.5 gm/ Dextrose IV 02/28/21 07:59 Infused Q8H STARR Infusion Protocol Vancomycin HCl 1,500 mg/ 530 mls @ 200 mls/hr 02/23/21 12:00 02/23/21 12:09 Sodium Chloride IV 03/02/21 11:59 200 mls/hr Q12H STARR Administration Protocol Insulin Aspart 0 units 02/22/21 21:00 02/23/21 13:47 Insulin Aspart 100 Units/Ml 3 Ml Pen SC 03/24/21 12:48 15 units ACHS STARR Administration Protocol Insulin Glargine 0 units 02/22/21 21:00 02/22/21 21:38 Insulin Glargine Solostar 100 Units/Ml 3 Ml Pen SC 03/23/21 20:59 25 units HS STARR Administration Protocol Insulin Glargine 20 units 02/23/21 09:00 02/23/21 09:33 Insulin Glargine Solostar 100 Units/Ml 3 Ml Pen SC 03/24/21 08:59 20 units QAM STARR Administration Lisinopril 5 mg 02/21/21 09:00 02/23/21 09:29 Lisinopril 5 Mg Tab PO 03/23/21 08:59 5 mg DAILY STARR Administration Past Medical History Medical History (Updated 02/23/21 @ 13:51 by Tung Niño MD) Corns and callosities Diabetic foot ulcer associated with type 2 diabetes mellitus DM (diabetes mellitus) Encounter for pre-operative examination Hypercholesterolemia Hypertension Obesity Type 2 diabetes mellitus with diabetic polyneuropathy Social History Smoking Status: Never smoker Hx Alcohol Use: No Hx Substance Use: No Physical Exam Vital Signs Last Vital Signs Temp 36.6 C 02/23/21 07:57 Pulse 75 02/23/21 07:57 Resp 18 02/23/21 07:57 BP 148/89 H 02/23/21 07:57 Pulse Ox 95 02/23/21 07:57 Testing Laboratory Results 02/23/21 06:22 02/23/21 06:22 PT 9.9 Seconds (9.0-12.0) 02/23/21 06:22 INR 1.0 (0.9-1.1) 02/23/21 06:22 APTT 36.1 Seconds (21.0-31.0) H 02/23/21 06:22 Hemoglobin A1c 10.4 % (4.5-5.6) H 02/21/21 06:36 Urine Color Yellow 02/21/21 07:53 Urine Appearance Clear (Clear) 02/21/21 07:53 Urine pH 5.0 (4.5-7.5) 02/21/21 07:53 Ur Specific Anderson 1.040 (1.000-1.030) H 02/21/21 07:53 Urine Protein 1+ (Negative) H 02/21/21 07:53 Urine Glucose (UA) 3+ (Negative) H 02/21/21 07:53 Urine Ketones 2+ (Negative) H 02/21/21 07:53 Urine Nitrite Negative (Negative) 02/21/21 07:53 Ur Leukocyte Esterase Negative (Negative) 02/21/21 07:53 Urine WBC (Auto) 1-5 /hpf (0-5) 02/21/21 07:53 Urine RBC (Auto) 0-4 /hpf (0-4) 02/21/21 07:53 U Hyaline Cast (Auto) 0 /lpf (0-5) 02/21/21 07:53 U Epithel Cells (Auto) 20-30 /lpf (0-5) H 02/21/21 07:53 Urine Bacteria (Auto) Negative (Negative) 02/21/21 07:53 02/20/21 22:50 Gram Stain - Final Toe Wound Culture - Final Corynebacterium species 02/23/21 02/23/21 12:10 08:02 POC Glucose 169 H 93
--- NOTE | 2021-02-23 13:55 | Pharmacy Report ---
Pharmacy Glycemic Short Note 2 - Date of Service February 23, 2021 - Glycemic Short BSG Results (Last 24 hours): 02/22/21 02/22/21 02/23/21 17:27 20:53 06:22 Glucose 102 H POC Glucose 148 H 216 H 02/23/21 02/23/21 08:02 12:10 Glucose POC Glucose 93 169 H OUTPATIENT ANTIDIABETIC REGIMEN: * Metformin 1000 mg PO BIDM * HbA1c: 10.4% (02/21/21) ASSESSMENT: 02/23 * BSGs yesterday of 147, 218, 148, and 216 mg/dL * Received 62 units of insulin (40 units of basal and 22 units of prandial/correctional Novolog) * Patient scheduled for right 5th toe I&D with possible amputation tomorrow * Will tighten Novolog parameters today and scale basal once again 02/22: * RAI is a 56 year old male admitted on 02/21/21 for IV antibiotic treatment of right diabetic foot infection with concern for osteomyelitis * Broad spectrum antibiotics (vancomycin/Zosyn) initiated * BSGs elevated yesterday (168, 235, 223, 276 mg/dL), pharmacy consulted last evening * Basal ordered at that time and Novolog parameters tightened * BSGs trended down nicely overnight, 147 mg/dL this morning * Patient now NPO at lunchtime today pending orthopedic consult PLAN FOR INPATIENT GLYCEMIC CONTROL: * Hold outpatient oral diabetes medications * Basal insulin * Lantus 20 units SC qAM * Lantus scale 15-20 units SC HS (see EHR for details) * Bolus insulin * NovoLog per scale ACHS or Q6hrs while NPO * Goal Range: Low 110 mg/dL - High 140 mg/dL * Correction Factor: 15 mg/dL/unit * Nutritional / Prandial insulin per carb ratio of 1 unit per 5 grams CHO consumed PLAN FOR DISCHARGE: * HbA1c: 10.4% is significantly above goal of less than 7% (especially in light of diabetic foot infection) * For HbA1c > 10%, consider triple therapy with metformin + basal insulin + (GLP1-RA OR prandial insulin). * Will follow insulin needs and make recommendations as appropriate
--- NOTE | 2021-02-23 17:36 | Hospitalist Progress Note ---
Date of Service February 23, 2021 Assessment & Plan (1) Diabetic infection of right foot: Plan: Diabetic foot infection/ascending lymphangitis- X-ray and CT of the right foot concerning for osteomyelitis versus gas gangrene of the fifth right toe Day 4 of vancomycin, and Zosyn. Culture with corynebacterium Orthopedics consulted. Discussed concern with patient including possible gas gangrene Glycemic consult as well as educator senior clinical consult A1c is 10.4% Emphasized importance of diabetic control with the patient Headed for OR tomorrow for amputation And consult infectious disease for choice of antibiotics postoperatively Hopefully will have intraoperative cultures taken Add on probiotics (2) DM (diabetes mellitus): Plan: Hold Metformin Place on Accu-Cheks before meals and at bedtime with NovoLog coverage per scale Hemoglobin A1c 10.4% Glycemic consult from pharmacy requested Also requested consult with inclusion special educator Suggest outpatient follow-up with endocrinology Hold outpatient oral diabetes medications Patient excepting of using insulin at home on discharge (3) Diabetic peripheral neuropathy associated with type 2 diabetes mellitus: Plan: Has not been on active treatment, and should be considered going forward but does not complain of pain He is supposed to be getting new diabetic shoes and orthopedic shoe store in about [address] Louis Stanton for podiatry Diabetic education consulted for better diabetic control (4) Hypercholesterolemia: Plan: Continue atorvastatin (5) Hypertension: Plan: Continue lisinopril 5 mg daily Hemodynamically stable Admission and Anticipated Discharge Date Admission Date: February 21, 2021 Subjective Feeling well, no pain. No chest pain or shortness of breath. Starting get some loose stools Review of Systems Review of Systems: All systems reviewed & are unremarkable except as noted in HPI & below Physical Exam Constitutional: WD/WN, vitals as above ENMT: external ear and nose normal, oropharynx normal Neck: trachea midline, no thyromegaly Respiratory: normal respiratory effort, lungs clear to auscultation Cardiovascular: RRR, no murmur, no edema Chest (Breasts): Chest: normal inspection of chest Gastrointestinal (Abdomen): normal bowel sounds, soft, nontender, no hepatosplenomegaly Musculoskeletal: Extremities: + extremities abnormal to inspection (Right fifth toe and foot edematous, erythema, blackened skin), no cyanosis and no clubbing Neurologic: moves all extremities and awake; no focal motor deficits Psychiatric: A+Ox3, euthymic affect Lymphatic: no lymphedema Results & Data Results & Data ([facility]) Vital Signs (Past 12 Hours) Vital Signs Temp Pulse Resp BP Pulse Ox 02/23/21 14:38 37.1 C 78 18 142/83 H 97 02/23/21 07:57 36.6 C 75 18 148/89 H 95 PG Care Time/CCT Total # of Minutes Spent Total Time Spent with Patient: Total time spent is greater than 50% in coordination of care (as documented) at patient's floor/unit and/or counseling patient: Coding Level of Care Code 10430 Subseq Hosp Care Lvl 2 Diagnoses Diabetic infection of right foot E11.628; L08.9 DM (diabetes mellitus) E11.9 Diabetes mellitus complication status: without complication Diabetes mellitus shelter insulin use: without shelter use Diabetes mellitus type: type 2 Diabetic peripheral neuropathy associated with type 2 diabetes mellitus E11.42 Hypercholesterolemia E78.00 Hypertension I10 (1) DM (diabetes mellitus) Diabetes mellitus complication status: without complication Diabetes mellitus intermediate accountant insulin use: without intermediate accountant use Diabetes mellitus type: type 2 Qualified Code(s): E11.9 - Type 2 diabetes mellitus without complications
[2021-02-23] MEDS: SACCHAROMYCES BOULARDII 250 MG CAP PO SCH (20:18)
[2021-02-23] MEDS: INSULIN GLARGINE SOLOSTAR 100 UNITS/ML 3 ML PEN SC SCH (21:23)
[2021-02-24] MEDS ORDERED: Nursing to Pharmacy Communication SCH ×2 (00:15→16:15)
[2021-02-24] MEDS: INSULIN ASPART 100 UNITS/ML 3 ML PEN SC SCH ×4 (06:12→20:50)
[2021-02-24 07:08] LABS: Creatinine Clr Calc Pharmacy 92.7 ml/min; Est GFR (African American) 86.2 ml/min; Est GFR (Non-African American) 74.4 ml/min
[2021-02-24] MEDS: PIPERACILLIN/TAZOBACTAM 4.5 GM in DEXTROSE 5% 100 ML IV SCH ×3 (08:08→22:27)
[2021-02-24] MEDS: ENOXAPARIN INJ 40 MG/0.4 ML SYR SQ SCH (08:13)
[2021-02-24] MEDS: ATORVASTATIN 20 MG TAB PO SCH (08:13)
[2021-02-24] MEDS: lisinopril 5 MG TAB PO SCH (08:15)
[2021-02-24] MEDS: SACCHAROMYCES BOULARDII 250 MG CAP PO SCH (08:15)
[2021-02-24] MEDS ORDERED: INSULIN GLARGINE SOLOSTAR 100 UNITS/ML 3 ML PEN SC SCH ×2 (09:00)
--- NOTE | 2021-02-24 10:30 | Pharmacy Report ---
Pharmacy Glycemic Short Note 2 - Date of Service February 24, 2021 - Glycemic Short BSG Results (Last 24 hours): 02/23/21 02/23/21 02/23/21 12:10 : 20:49 POC Glucose 169 H 139 H 144 H 02/24/21 05:55 POC Glucose 93 OUTPATIENT ANTIDIABETIC REGIMEN: * Metformin 1000 mg PO BIDM * HbA1c: 10.4% (02/21/21) ASSESSMENT: 02/24 * BSGs reasonably well-controlled yesterday (ranging 93-169 mg/dL) * Received 75 units of insulin (40 units of basal and 35 units of prandial/correctional bolus) * NPO after midnight, currently in OR * Gave reduced Lantus dose this morning, will utilize scale again this evenin g 02/23 * BSGs yesterday of 147, 218, 148, and 216 mg/dL * Received 62 units of insulin (40 units of basal and 22 units of prandial/correctional Novolog) * Patient scheduled for right 5th toe I&D with possible amputation tomorrow * Will tighten Novolog parameters today and scale basal once again 02/22: * CM is a 56 year old male admitted on 02/21/21 for IV antibiotic treatment of right diabetic foot infection with concern for osteomyelitis * Broad spectrum antibiotics (vancomycin/Zosyn) initiated * BSGs elevated yesterday (168, 235, 223, 276 mg/dL), pharmacy consulted last evening * Basal ordered at that time and Novolog parameters tightened * BSGs trended down nicely overnight, 147 mg/dL this morning * Patient now NPO at lunchtime today pending orthopedic consult PLAN FOR INPATIENT GLYCEMIC CONTROL: * Hold outpatient oral diabetes medications * Basal insulin - reduce * Lantus 10 units SC this morning (NPO) * Lantus scale 15-25 units SC HS (see EHR for details) * Bolus insulin * NovoLog per scale ACHS or Q6hrs while NPO * Goal Range: Low 110 mg/dL - High 140 mg/dL * Correction Factor: 15 mg/dL/unit * Nutritional / Prandial insulin per carb ratio of 1 unit per 5 grams CHO consumed PLAN FOR DISCHARGE: * HbA1c: 10.4% is significantly above goal of less than 7% (especially in light of diabetic foot infection) * For HbA1c > 10%, consider triple therapy with metformin + basal insulin + (GLP1-RA OR prandial insulin). * Continue metformin 1 g PO BIDM * Initiate Lantus 40 units SC daily * Encourage lifestyle changes, reviewed by asthma educator * Can defer addition of mealtime insulin to outpatient setting if basal, metformin, and lifestyle changes are inadequate to achieve HbA1c goal * Support Patient Self-Management * Healthy Lifestyle (diet, exercise, and smoking cessation) * Disease self-management (SMBG) * Prevention of complications (BP, Lipid goals, Immunizations) * Consider outpatient Diabetes Self-Management Education & Support * Most patients on multiple-dose insulin (MDI) should SMBG * Prior to meals and snacks * At bedtime * Prior to exercise * When they suspect low blood glucose * After treating low blood glucose until they are normoglycemic * Prior to critical tasks such as driving * Occasionally postprandially
[2021-02-24] MEDS ORDERED: MIDAZOLAM HCL 1 MG/ML 2ML VIAL ONE ×2 (12:06→12:54)
[2021-02-24] MEDS ORDERED: fentaNYL citrate 100 MCG/2 ML VIAL ONE (12:06)
[2021-02-24] MEDS ORDERED: LIDOCAINE 2% 2 ML VIAL/AMP(20MG/ML) INFIL ONE (12:08)
[2021-02-24] MEDS ORDERED: ONDANSETRON INJ 2 MG/ML 2 ML VIAL ONE (12:08)
[2021-02-24] MEDS ORDERED: PROPOFOL IV EMULSION 10 MG/ML 20 ML VIAL IV ONE ×2 (12:08→13:07)
--- NOTE | 2021-02-24 12:27 | History & Physical Bridge Note ---
Date of Service February 24, 2021 History & Physical Bridge Note I have examined the patient, reviewed the History & Physical and in the interval since the performance of the History & Physical I have noted the following changes of clinical significance:Will require right fifth toe amputation and tenosynovectomy fifth extensor tendon.
[2021-02-24] MEDS ORDERED: BUPIVACAINE 0.5 % 5 MG/1 ML MPF 30ML VIAL ONE (12:43)
[2021-02-24] MEDS ORDERED: fentaNYL citrate 100 MCG/2 ML VIAL IV PRN (12:46)
[2021-02-24] MEDS ORDERED: ePHEDrine sulfate 50 MG/ML AMP IV PRN (12:46)
[2021-02-24] MEDS ORDERED: ONDANSETRON INJ 2 MG/ML 2 ML VIAL IV PRN (12:46)
[2021-02-24] MEDS ORDERED: ATROPINE SULFATE 0.1 MG/ML 10ML SYR IV PRN (12:46)
[2021-02-24] MEDS: VANCOMYCIN HCL 1,500 MG in SODIUM CHLORIDE 0.9% 500 ML IV SCH (13:32)
--- NOTE | 2021-02-24 14:02 | Post Operative Brief Note ---
Immediate Post Op Note v1 Date of Surgery February 24, 2021 Pre & Post Diagnosis Operation Date: 02/24/21 07:00 Pre-Op Diagnosis: Right fifth toe gangrene, osteomyelitis fifth toe, Diabetic Foot Infection of Right 5th Toe, peripheral neuropathy Post-Op Diagnosis: Right fifth toe gangrene, osteomyelitis fifth toe, Diabetic Foot Infection of Right 5th Toe, peripheral neuropathy I identified the patient and participated in the time-out.: Yes Procedure Operation Date: 02/24/21 07:00 Actual Procedures p Right 5th Toe Amputation(Right) - Naun Eugene DO s Right foot tenosynovectomy fifth extensor tendon Surgeon Naun Eugene DO Shaping Machine Tender None Estimated Blood Loss 1 Findings Consistent with Post-Op Diagnosis Specimens Aerobic, anaerobic, Gram stain abscess right fifth toe Drains Other (1/2 inch iodoform gauze) Anesthesia Type MAC Regional Complications none Disposition Accompanied Patient To Recovery: No
--- NOTE | 2021-02-24 14:33 | Anesthesiology Progress Note ---
Date of Service February 24, 2021 Anesthesia Post Procedure Vital Signs Vital Signs: Temp Pulse Pulse Pulse Resp BP Pulse Ox 02/24/21 14:25 36.1 C L 70 15 134/86 97 02/24/21 14:15 75 18 126/86 96 02/24/21 14:05 76 15 125/82 95 02/24/21 13:58 36.4 C L 67 13 129/78 100 02/24/21 12:36 36.6 C 83 18 141/83 H 95 02/24/21 07:35 36.6 C 73 18 158/92 H 95 02/24/21 06:13 71 145/84 H 02/23/21 23:10 37.1 C 74 16 170/83 H 95 02/23/21 14:38 37.1 C 78 18 142/83 H 97 Pain Intensity Right Foot: Pain Intensity: 6 Transfer of Care Handoff Completed per policy Notes Mental Status: alert / awake / arousable and participated in evaluation Patient Amnestic to Procedure: Yes Nausea / Vomiting: adequately controlled Pain: adequately controlled Airway Patency, RR, SpO2: stable & adequate BP & HR: stable & adequate Hydration State: stable & adequate Anesthetic Complications: no major complications apparent and Pt Satisfied with anesthetic care
--- NOTE | 2021-02-24 18:57 | Hospitalist Progress Note ---
Date of Service February 24, 2021 Assessment & Plan (1) Diabetic infection of right foot: Plan: Diabetic foot infection/ascending lymphangitis- X-ray and CT of the right foot concerning for osteomyelitis versus gas gangrene of the fifth right toe Day 5 of vancomycin, and Zosyn. Surface Culture with corynebacterium Intraoperative cultures now pending Orthopedics consulted. Now s/p right 5th toe amputation and 5th tenosynovectomy -consult infectious disease for choice of antibiotics and time course postoperatively -continue probiotics -continue current abx (2) DM (diabetes mellitus): Plan: Hold Metformin Place on Accu-Cheks before meals and at bedtime with NovoLog coverage per scale Hemoglobin A1c 10.4% Glycemic consult from pharmacy requested Also requested consult with substance addiction coordinator Suggest outpatient follow-up with endocrinology Hold outpatient oral diabetes medications Patient acccepting of using insulin at home on discharge (3) Diabetic peripheral neuropathy associated with type 2 diabetes mellitus: Plan: Has not been on active treatment, and should be considered going forward but does not complain of pain He is supposed to be getting new diabetic shoes and orthopedic shoe store in near future Follows with Dr. Louis Stanton for podiatry Diabetic education consulted for better diabetic control (4) Hypercholesterolemia: Plan: Continue atorvastatin (5) Hypertension: Plan: lisinopril 5 mg daily from home has been on hold BPs stable Plan: DVT Proph-SCD to left leg Dispo-continued stay, possible dc to home in next 1-2 days, may need IV abx if recommended by ID Admission and Anticipated Discharge Date Admission Date: February 21, 2021 Subjective Pt had surgery on right foot this AM. Has no pain, no nausea, no CP or SOB, feeling well, hoping to get out of here in next day or so. Review of Systems Review of Systems: All systems reviewed & are unremarkable except as noted in HPI & below Physical Exam Constitutional: WD/WN, vitals as above Neck: trachea midline, no thyromegaly Respiratory: normal respiratory effort, lungs clear to auscultation Cardiovascular: RRR, no murmur, no edema Chest (Breasts): Chest: normal inspection of chest Gastrointestinal (Abdomen): normal bowel sounds, soft, nontender, no hepatosplenomegaly Musculoskeletal: Extremities: + extremities abnormal to inspection (Right foot/ankle in dressing and YOSELIN wrap), no cyanosis and no clubbing Neurologic: moves all extremities and awake; no focal motor deficits Psychiatric: A+Ox3, euthymic affect Lymphatic: no lymphedema Results & Data Results & Data ([facility]) Vital Signs (Past 12 Hours) Vital Signs Temp Pulse Pulse Resp BP Pulse Ox 02/24/21 16:45 36.7 C 68 18 146/86 H 96 02/24/21 15:45 36.7 C 75 18 124/77 97 02/24/21 15:15 36.7 C 75 18 145/93 H 97 02/24/21 14:45 36.7 C 68 18 156/95 H 98 02/24/21 14:25 36.1 C L 70 15 134/86 97 02/24/21 14:15 75 18 126/86 96 02/24/21 14:05 76 15 125/82 95 02/24/21 13:58 36.4 C L 67 13 129/78 100 02/24/21 12:36 36.6 C 83 18 141/83 H 95 02/24/21 07:35 36.6 C 73 18 158/92 H 95 Laboratory Results 02/24/21 02/24/21 02/24/21 Range/Units 17:32 14:25 13:59 Creatinine (0.6-1.4) mg/dl Est Cr Clr Drug Dosing ml/min Est GFR ( Amer) ml/min Est GFR (Non-Af Amer) ml/min POC Glucose 170 H 114 H 77 (70-99) mg/dl 02/24/21 02/24/21 02/24/21 Range/Units 12:12 06:06 05:55 Creatinine 1.11 (0.6-1.4) mg/dl Est Cr Clr Drug Dosing 92.7 ml/min Est GFR ( Amer) 86.2 ml/min Est GFR (Non-Af Amer) 74.4 ml/min POC Glucose 83 93 (70-99) mg/dl 02/23/21 Range/Units 20:49 Creatinine (0.6-1.4) mg/dl Est Cr Clr Drug Dosing ml/min Est GFR ( Amer) ml/min Est GFR (Non-Af Amer) ml/min POC Glucose 144 H (70-99) mg/dl PG Care Time/CCT Total # of Minutes Spent Total Time Spent with Patient: Total time spent is greater than 50% in coordination of care (as documented) at patient's floor/unit and/or counseling patient: Coding Level of Care Code 34655 Subseq Hosp Care Lvl 2 Diagnoses Diabetic infection of right foot E11.628; L08.9 DM (diabetes mellitus) E11.9 Diabetes mellitus complication status: without complication Diabetes mellitus residential insulin use: without residential use Diabetes mellitus type: type 2 Diabetic peripheral neuropathy associated with type 2 diabetes mellitus E11.42 Hypercholesterolemia E78.00 Hypertension I10 (1) DM (diabetes mellitus) Diabetes mellitus complication status: without complication Diabetes mellitus intermodal dispatcher insulin use: without intermodal dispatcher use Diabetes mellitus type: type 2 Qualified Code(s): E11.9 - Type 2 diabetes mellitus without complications
--- NOTE | 2021-02-24 19:53 | Operative Report (OR) ---
DATE OF PROCEDURE: 02/24/2021 PREOPERATIVE DIAGNOSES: 1. Right fifth toe gangrene. 2. Osteomyelitis of the right fifth toe. 3. Suppurative fifth extensor tenosynovitis. 4. Diabetic foot infection. 5. Peripheral neuropathy. POSTOPERATIVE DIAGNOSES: 1. Right fifth toe gangrene. 2. Osteomyelitis of the right fifth toe. 3. Suppurative fifth extensor tenosynovitis. 4. Diabetic foot infection of the fifth toe. 5. Peripheral neuropathy. PROCEDURE: Right fifth toe amputation and right foot tenosynovectomy of the fifth extensor tendon. SURGEON: Naun Eugene DO. EYE SPECIALIST: None. ANESTHESIA: [facility] regional. SPECIMENS: Aerobic, anaerobic, Gram stain, abscess of the right fifth toe. DRAINS: 1/2 inch iodoform gauze drain. COMPLICATIONS: None. BLOOD LOSS: 1 mL. PERTINENT HISTORY: This is a 56-year-old gentleman who developed deep ulcerations on the right fifth toe, which began with a blister and then worsened over days to weeks. He was on antibiotics for a c hronic diabetic ulcer on the left foot. He had a blister on the right foot, which worsened, progress ed over time with swelling and drainage, discoloration of the fifth toe with some features of lymphan gitis. The patient was then seen in the Emergency Department, admitted to the hospitalist service. Orthopedics was consulted, evaluated and noted to have gangrene of the fifth toe, positive free air a nd advanced imaging studies consistent with also possible osteomyelitis of the fifth toe. The patien t was then scheduled for surgery as indicated. All potential risks, benefits, complications, alternatives, rehab potential for incomplete relief of symptoms, need for further surgery, DVT, PE, , persistent pain, swelling, scarring, weakness, ne urovascular injury, wound complications, need for further amputation were discussed with the patient. The patient decided to proceed with the procedure as indicated. DESCRIPTION OF PROCEDURE: The patient was taken to the operative suite and placed supine on the oper ating table. After review of consent and identification of proper operative site, the patient was se dated and the right lower extremity was then sterilely prepped and draped in usual fashion. A fifth ray block was performed with approximately 30 mL of 0.5% Marcaine plain with injection of local anest hetic circumferentially around the fifth toe at the base and then also in the fourth intermetatarsal space and along the sural nerve and the superficial peroneal nerve. After sterile prep and drape was performed, surgical timeout was performed. A 4-inch Esmarch tourniquet was applied over sterile michelle gical towel at the level of the ankle. Next, a #15 blade was used to make an incision in a racquet configuration beginning over the fifth me tatarsophalangeal joint, extending circumferentially around the base of the fifth toe and then back o nto itself. The incision was then carefully deepened through skin and subcutaneous tissue. Purulent abscess was noted at the base of the fifth toe. An aerobic, anaerobic, Gram stain specimen was obta ined from this site. Next, the toe was then transected circumferentially at the metaphyseal flare of the proximal phalanx of the fifth toe. Next, the Ragnell rakes were applied and the soft tissue ret racted gently revealing the capsular ligaments and the joint capsule of the fifth metatarsophalangeal joint, which was then circumferentially released. The toe specimen was then placed on the back tabl e. Next, the extensor tendon was then identified and noted to have a tracking tenosynovitis slightly pro ximally. Sherita rakes were applied to the soft tissue. Careful dissection was performed proximally wi thin the tendon sheath, no evidence of further involvement approximately 1 cm proximal to the fifth m etatarsal head. At this time, the site was copiously irrigated with sterile saline until clear and t hen tenosynovectomy was then performed with a rongeur and a forceps. A portion of the distal fifth e xtensor was then sacrificed to maintain a sterile margin and this was passed off. Soft tissue surrou nding the necrotic fifth toe was then carefully debrided with a rongeur and forceps until all necroti c tissue had been excised. Next, the site was then copiously irrigated with sterile saline until clear approximately 1 liter in total. The 1/2 inch iodoform gauze was then placed into the excision site of the fifth toe and then through a small stab incision, the iodoform gauze drain was then pulled proximally. The tissue flaps were then loosely closed using a combination of horizontal mattress and simple sutures using 3-0 nyl on and 4-0 nylon. The tourniquet was released. A sterile compressive dressing was applied, overwrap ped with an Husam wrap. The patient was then awakened and then taken to recovery in stable condition. Job ID: [id number]
[2021-02-24] MEDS: INSULIN GLARGINE SOLOSTAR 100 UNITS/ML 3 ML PEN SC SCH (20:49)
[2021-02-24] MEDS: ACETAMINOPHEN 325 MG TAB PO PRN (22:27)
[2021-02-25] MEDS: VANCOMYCIN HCL 1,500 MG in SODIUM CHLORIDE 0.9% 500 ML IV SCH ×2 (01:51→12:26)
[2021-02-25 08:21] LABS: Eosinophils % (auto) 1.2 %; Hematocrit (blood only) 41.2 % (42-52); Hemoglobin 14.2 g/dL (14.0-18.0); Lymphocytes % (auto) 19.6 %; Mean Corpuscular Hemoglobin 31.1 pg (25-34); Mean Corpuscular Hgb Conc 34.5 g/dL (32-36); Mean Corpuscular Volume 90.4 fL (80-100); Mean Platelet Volume 8.6 fL (7.4-10.4); Neutrophils % (auto) 68.6 %; Platelet Count 281 K/uL (130-400); Red Blood Count 4.56 M/uL (4.7-6.1); White Blood Count 8.48 K/uL (4.8-10.8)
[2021-02-25 08:22] LABS: Basophils # (auto) 0.03 K/uL (0-0.2); Basophils % (auto) 0.4 %; Immature Granulocytes # (auto) 0.02 K/uL (0.00-0.02); Immature Granulocytes % (auto) 0.2 %; Lymphocytes # (auto) 1.66 K/uL (1.2-3.4); Monocytes # (auto) 0.85 K/uL (0.11-0.59); Neutrophils # (auto) 5.82 K/uL (1.4-6.5)
[2021-02-25] MEDS: PIPERACILLIN/TAZOBACTAM 4.5 GM in DEXTROSE 5% 100 ML IV SCH ×3 (08:23→21:19)
[2021-02-25 08:47] LABS: Calcium 9.1 mg/dl (8.5-10.1); Creatinine Clr Calc Pharmacy 100.9 ml/min; Est GFR (African American) 95.5 ml/min; Est GFR (Non-African American) 82.4 ml/min
[2021-02-25] MEDS ORDERED: INSULIN GLARGINE SOLOSTAR 100 UNITS/ML 3 ML PEN SC SCH ×2 (09:00)
--- NOTE | 2021-02-25 09:51 | Orthopedic Progress Note ---
Date of Service February 25, 2021 Assessment & Plan (1) Diabetic infection of right foot: Plan: Postop day 1 status post fifth toe amputation Patient may be out of bed on a limited basis heel weightbearing only at this time. Continue to wear the supportive shoe. Plan for dressing change tomorrow. Operative cultures pending with no organisms seen. Corynebacterium species shown on culture of fifth toe on the 16th of this month. Admission and Anticipated Discharge Date Admission Date: February 21, 2021 Subjective Postop day 1 Patient sitting up in bed eating his breakfast. No complaints this morning. Pain is controlled. Physical Exam Physical Exam: Dressings are clean, dry, and intact. No saturation for bleeding is noted. Remainder of toes appear pink and warm. Results & Data ([facility]) Vital Signs (Past 12 Hours) Vital Signs Temp Pulse Resp BP Pulse Ox 02/25/21 07:26 37.1 C 72 20 125/73 94 02/25/21 03:23 36.9 C 79 16 135/73 95 02/24/21 22:35 36.8 C 76 18 155/93 H 97
[2021-02-25] MEDS: ATORVASTATIN 20 MG TAB PO SCH (09:52)
[2021-02-25] MEDS: lisinopril 5 MG TAB PO SCH (09:52)
[2021-02-25] MEDS: ENOXAPARIN INJ 40 MG/0.4 ML SYR SQ SCH (09:53)
[2021-02-25] MEDS: SACCHAROMYCES BOULARDII 250 MG CAP PO SCH (09:53)
[2021-02-25] MEDS: INSULIN ASPART 100 UNITS/ML 3 ML PEN SC SCH ×4 (09:57→21:22)
[2021-02-25] MEDS ORDERED: VANCOMYCIN TROUGH ONE (11:30)
--- NOTE | 2021-02-25 11:58 | Electrocardiogram Report ---
Test Reason : Blood Pressure : / mmHG Vent. Rate : 068 BPM Atrial Rate : 068 BPM P-R Int : 188 ms QRS Dur : 092 ms QT Int : 378 ms P-R-T Axes : 043 017 020 degrees QTc Int : 401 ms Normal sinus rhythm Normal ECG No previous ECGs available Confirmed by Miguelito Bauman ([id number]) on 02/25/2021 11:57:40 AM Referred By: REFERRED SELF Confirmed By:Miguelito Bauman
[2021-02-25] MEDS: ACETAMINOPHEN 325 MG TAB PO PRN (14:58)
[2021-02-25] MEDS: INSULIN GLARGINE SOLOSTAR 100 UNITS/ML 3 ML PEN SC SCH (21:22)
--- NOTE | 2021-02-25 22:21 | Hospitalist Progress Note ---
Date of Service February 25, 2021 Assessment & Plan (1) Diabetic infection of right foot: Plan: Diabetic foot infection/ascending lymphangitis- X-ray and CT of the right foot concerning for osteomyelitis versus gas gangrene of the fifth right toe Day 6 of vancomycin, and Zosyn. Surface Culture with corynebacterium Intraoperative cultures now pending-Gram stain with gram-positive cocci Orthopedics consulted. Now s/p right 5th toe amputation and 5th tenosynovectomy -Plan to remove dressing tomorrow -consult infectious disease for choice of antibiotics and time course postoperatively-recommends awaiting cultures, and hopeful that the organism will be sensitive to a p.o. antibiotic -continue probiotics -continue current abx (2) DM (diabetes mellitus): Plan: Hold Metformin Place on Accu-Cheks before meals and at bedtime with NovoLog coverage per scale Hemoglobin A1c 10.4% Glycemic consult from pharmacy requested Also requested consult with personal development educator Suggest outpatient follow-up with endocrinology Hold outpatient oral diabetes medications Patient acccepting of using insulin at home on discharge (3) Diabetic peripheral neuropathy associated with type 2 diabetes mellitus: Plan: No pain with this He is supposed to be getting new diabetic shoes and orthopedic shoe store in near future Follows with Dr. Louis Stanton for podiatry Diabetic education consulted for better diabetic control (4) Hypercholesterolemia: Plan: Continue atorvastatin (5) Hypertension: Plan: lisinopril 5 mg daily from home has been on hold BPs stable but creeping up -Restart home lisinopril tomorrow Plan: DVT Proph-SCD to left leg Dispo-continued stay, possible dc to home in next 1-2 days, need to await final cultures for antibiotic choice for discharge Admission and Anticipated Discharge Date Admission Date: February 21, 2021 Subjective Patient anxious to be discharged from hospital. Denies any chest pain shortness of breath. Review of Systems 2 Review of Systems: All systems reviewed & are unremarkable except as noted in HPI & below Physical Exam Constitutional: WD/WN, vitals as above Neck: trachea midline, no thyromegaly Respiratory: normal respiratory effort, lungs clear to auscultation Cardiovascular: RRR, no murmur, no edema Chest (Breasts): Chest: normal inspection of chest Gastrointestinal (Abdomen): normal bowel sounds, soft, nontender, no hepatosplenomegaly Musculoskeletal: Extremities: + extremities abnormal to inspection (Right foot/ankle in dressing and YOSELIN wrap), no cyanosis and no clubbing Neurologic: moves all extremities and awake; no focal motor deficits Psychiatric: A+Ox3, euthymic affect Lymphatic: no lymphedema Results & Data Results & Data ([facility]) Vital Signs (Past 12 Hours) Vital Signs Temp Pulse Resp BP Pulse Ox 02/25/21 15:09 37.1 C 72 18 137/77 96 02/25/21 11:07 37.5 C 81 18 136/80 94 Laboratory Results 02/25/21 02/25/21 02/25/21 Range/Units 20:44 17:46 12:23 WBC (4.8-10.8) K/uL RBC (4.7-6.1) M/uL Hgb (14.0-18.0) g/dL Hct (42-52) % MCV (80-100) fL MCH (25-34) pg MCHC (32-36) g/dL RDW Std Deviation (36.4-46.3) fL RDW Coeff of Lalitha (11.5-14.5) % Plt Count (130-400) K/uL MPV (7.4-10.4) fL Immature Gran % (Auto) % Neut % (Auto) % Lymph % (Auto) % Vance % (Auto) % Eos % (Auto) % Baso % (Auto) % Neut # (Auto) (1.4-6.5) K/uL Lymph # (Auto) (1.2-3.4) K/uL Vance # (Auto) (0.11-0.59) K/uL Eos # (Auto) (0-0.5) K/uL Baso # (Auto) (0-0.2) K/uL Immature Gran # (Auto) (0.00-0.02) K/uL Sodium (136-145) mmol/L Potassium (3.5-5.1) mmol/L Chloride (98-107) mmol/L Carbon Dioxide (21-32) mmol/L Anion Gap (3-11) BUN (7-18) mg/dl Creatinine (0.6-1.4) mg/dl Est Cr Clr Drug Dosing ml/min Est GFR ( Amer) ml/min Est GFR (Non-Af Amer) ml/min BUN/Creatinine Ratio (10-20) Glucose (70-99) mg/dl POC Glucose 143 H 71 146 H (70-99) mg/dl Calcium (8.5-10.1) mg/dl Vancomycin Trough (See Comment) mcg/ml 02/25/21 02/25/21 02/25/21 Range/Units 11:31 08:06 07:46 WBC (4.8-10.8) K/uL RBC (4.7-6.1) M/uL Hgb (14.0-18.0) g/dL Hct (42-52) % MCV (80-100) fL MCH (25-34) pg MCHC (32-36) g/dL RDW Std Deviation (36.4-46.3) fL RDW Coeff of Lalitha (11.5-14.5) % Plt Count (130-400) K/uL MPV (7.4-10.4) fL Immature Gran % (Auto) % Neut % (Auto) % Lymph % (Auto) % Vance % (Auto) % Eos % (Auto) % Baso % (Auto) % Neut # (Auto) (1.4-6.5) K/uL Lymph # (Auto) (1.2-3.4) K/uL Vance # (Auto) (0.11-0.59) K/uL Eos # (Auto) (0-0.5) K/uL Baso # (Auto) (0-0.2) K/uL Immature Gran # (Auto) (0.00-0.02) K/uL Sodium 140 (136-145) mmol/L Potassium 4.0 (3.5-5.1) mmol/L Chloride 109 H (98-107) mmol/L Carbon Dioxide 25 (21-32) mmol/L Anion Gap 6.0 (3-11) BUN 12 (7-18) mg/dl Creatinine 1.02 (0.6-1.4) mg/dl Est Cr Clr Drug Dosing 100.9 ml/min Est GFR ( Amer) 95.5 ml/min Est GFR (Non-Af Amer) 82.4 ml/min BUN/Creatinine Ratio 12.0 (10-20) Glucose 85 (70-99) mg/dl POC Glucose 84 (70-99) mg/dl Calcium 9.1 (8.5-10.1) mg/dl Vancomycin Trough 15.2 (See Comment) mcg/ml 02/25/21 Range/Units 07:46 WBC 8.48 (4.8-10.8) K/uL RBC 4.56 L (4.7-6.1) M/uL Hgb 14.2 (14.0-18.0) g/dL Hct 41.2 L (42-52) % MCV 90.4 (80-100) fL MCH 31.1 (25-34) pg MCHC 34.5 (32-36) g/dL RDW Std Deviation 43.0 (36.4-46.3) fL RDW Coeff of Lalitha 13.0 (11.5-14.5) % Plt Count 281 (130-400) K/uL MPV 8.6 (7.4-10.4) fL Immature Gran % (Auto) 0.2 % Neut % (Auto) 68.6 % Lymph % (Auto) 19.6 % Vance % (Auto) 10.0 % Eos % (Auto) 1.2 % Baso % (Auto) 0.4 % Neut # (Auto) 5.82 (1.4-6.5) K/uL Lymph # (Auto) 1.66 (1.2-3.4) K/uL Vance # (Auto) 0.85 H (0.11-0.59) K/uL Eos # (Auto) 0.10 (0-0.5) K/uL Baso # (Auto) 0.03 (0-0.2) K/uL Immature Gran # (Auto) 0.02 (0.00-0.02) K/uL Sodium (136-145) mmol/L Potassium (3.5-5.1) mmol/L Chloride (98-107) mmol/L Carbon Dioxide (21-32) mmol/L Anion Gap (3-11) BUN (7-18) mg/dl Creatinine (0.6-1.4) mg/dl Est Cr Clr Drug Dosing ml/min Est GFR ( Amer) ml/min Est GFR (Non-Af Amer) ml/min BUN/Creatinine Ratio (10-20) Glucose (70-99) mg/dl POC Glucose (70-99) mg/dl Calcium (8.5-10.1) mg/dl Vancomycin Trough (See Comment) mcg/ml PG Care Time/CCT Total # of Minutes Spent Total Time Spent with Patient: Total time spent is greater than 50% in coordination of care (as documented) at patient's floor/unit and/or counseling patient: Coding Level of Care Code 91239 Subseq Hosp Care Lvl 2 Diagnoses Diabetic infection of right foot E11.628; L08.9 DM (diabetes mellitus) E11.9 Diabetes mellitus complication status: without complication Diabetes mellitus detention insulin use: without parts counterman use Diabetes mellitus type: type 2 Diabetic peripheral neuropathy associated with type 2 diabetes mellitus E11.42 Hypercholesterolemia E78.00 Hypertension I10 (1) DM (diabetes mellitus) Diabetes mellitus complication status: without complication Diabetes mellitus detention insulin use: without detention use Diabetes mellitus type: type 2 Qualified Code(s): E11.9 - Type 2 diabetes mellitus without complications
[2021-02-26] MEDS: VANCOMYCIN HCL 1,500 MG in SODIUM CHLORIDE 0.9% 500 ML IV SCH (00:41)
[2021-02-26 06:13] LABS: Basophils # (auto) 0.04 K/uL (0-0.2); Basophils % (auto) 0.5 %; Eosinophils # (auto) 0.12 K/uL (0-0.5); Eosinophils % (auto) 1.5 %; Hematocrit (blood only) 39.4 % (42-52); Hemoglobin 13.3 g/dL (14.0-18.0); Immature Granulocytes # (auto) 0.02 K/uL (0.00-0.02); Immature Granulocytes % (auto) 0.3 %; Lymphocytes # (auto) 2.18 K/uL (1.2-3.4); Lymphocytes % (auto) 27.8 %; Mean Corpuscular Hgb Conc 33.8 g/dL (32-36); Mean Corpuscular Volume 91.8 fL (80-100); Mean Platelet Volume 8.7 fL (7.4-10.4); Monocytes # (auto) 0.82 K/uL (0.11-0.59); Monocytes % (auto) 10.5 %; Neutrophils # (auto) 4.66 K/uL (1.4-6.5); Neutrophils % (auto) 59.4 %; Platelet Count 265 K/uL (130-400); RDW Coefficient of Variation 12.9 % (11.5-14.5); RDW Standard Deviation 43.4 fL (36.4-46.3); Red Blood Count 4.29 M/uL (4.7-6.1); White Blood Count 7.84 K/uL (4.8-10.8)
[2021-02-26 06:50] LABS: Calcium 8.7 mg/dl (8.5-10.1); Est GFR (African American) 93.2 ml/min; Est GFR (Non-African American) 80.5 ml/min; Potassium 3.7 mmol/L (3.5-5.1)
--- NOTE | 2021-02-26 08:52 | Orthopedic Progress Note ---
Date of Service February 26, 2021 Assessment & Plan (1) Diabetic infection of right foot: Plan: Postop day 2 status post fifth toe amputation Patient may be out of bed. Heel weightbearing only on the right foot. Continue to wear the supportive shoe. Daily dressing changes. Operative cultures pending with no organisms seen. Corynebacterium species shown on culture of fifth toe on the 16th of this month. Discussed case with Dr. Eugene. Patient will not require home IV antibiotics. Plan for 10 to 14 days of oral antibiotics upon discharge. Orthopedics will sign off at this time. Please call with any questions. Admission and Anticipated Discharge Date Admission Date: February 21, 2021 Subjective Postop day 2 Patient sitting up in bed awake and alert. No complaints this morning. Pain controlled. Physical Exam Physical Exam: Dressings removed on the right foot. All packing removed. No purulent drainage noted. Mild erythema around the iodoform packing was removed. Fifth toe wound site well approximated. No purulence. Minimal bloody drainage. Redressed with Adaptic, 4 x 4's, Kerlix, and an Husam wrap. Results & Data ([facility]) Vital Signs (Past 12 Hours) Vital Signs Temp Pulse Resp BP Pulse Ox 02/26/21 07:45 36.7 C 70 16 137/79 94 02/25/21 22:21 36.7 C 77 18 132/73 97
[2021-02-26] MEDS ORDERED: INSULIN GLARGINE SOLOSTAR 100 UNITS/ML 3 ML PEN SC SCH (09:00)
[2021-02-26] MEDS: INSULIN ASPART 100 UNITS/ML 3 ML PEN SC SCH ×2 (09:33→13:07)
[2021-02-26] MEDS: ENOXAPARIN INJ 40 MG/0.4 ML SYR SQ SCH (09:33)
[2021-02-26] MEDS: lisinopril 5 MG TAB PO SCH (09:34)
[2021-02-26] MEDS: ATORVASTATIN 20 MG TAB PO SCH (09:34)
[2021-02-26] MEDS: SACCHAROMYCES BOULARDII 250 MG CAP PO SCH (09:34)
[2021-02-26] MEDS: PIPERACILLIN/TAZOBACTAM 4.5 GM in DEXTROSE 5% 100 ML IV SCH (09:38)
--- NOTE | 2021-02-26 11:27 | Pharmacy Report ---
Pharmacy Glycemic Short Note 2 - Date of Service February 26, 2021 - Glycemic Short BSG Results (Last 24 hours): 02/25/21 02/25/21 02/25/21 12:23 17:46 20:44 Glucose POC Glucose 146 H 71 143 H 02/26/21 02/26/21 05:49 08:00 Glucose 94 POC Glucose 90 OUTPATIENT ANTIDIABETIC REGIMEN: * Metformin 1000 mg PO BIDM * HbA1c: 10.4% (02/21/21) ASSESSMENT: 02/26/21 * Mr Paul is POD #2 s/p toe amputation. * BSGs have been well-controlled with basal/bolus insulin. * Transitioned to once-daily Lantus this morning and loosened Novolog parameters slightly, as there have been several BSGs below goal. Tight glycemic control is ideal to promote wound healing and discourage infection, but also want to avoid hypoglycemia. 02/22 (background) * RAI is a 56 year old male admitted on 02/21/21 for IV antibiotic treatment of right diabetic foot infection with concern for osteomyelitis * Broad spectrum antibiotics (vancomycin/Zosyn) initiated * BSGs elevated yesterday (168, 235, 223, 276 mg/dL), pharmacy consulted last evening * Basal ordered at that time and Novolog parameters tightened * BSGs trended down nicely overnight, 147 mg/dL this morning * Patient now NPO at lunchtime today pending orthopedic consult PLAN FOR INPATIENT GLYCEMIC CONTROL: * Hold outpatient oral diabetes medications * Basal insulin - reduce * Lantus 10 units SC this morning (NPO) * Lantus scale 15-25 units SC HS (see EHR for details) * Bolus insulin * NovoLog per scale ACHS or Q6hrs while NPO * Goal Range: Low 110 mg/dL - High 140 mg/dL * Correction Factor: 15 mg/dL/unit * Nutritional / Prandial insulin per carb ratio of 1 unit per 5 grams CHO consumed PLAN FOR DISCHARGE: * HbA1c: 10.4% is significantly above goal of less than 7% (especially in light of diabetic foot infection) * For HbA1c > 10%, consider triple therapy with metformin + basal insulin + (GLP1-RA OR prandial insulin). * Continue metformin 1 g PO BIDM * Initiate Lantus 30-40 units SC daily * Encourage lifestyle changes, reviewed by clinical systems educator * Can defer addition of mealtime insulin to outpatient setting if basal, metformin, and lifestyle changes are inadequate to achieve HbA1c goal * Support Patient Self-Management * Healthy Lifestyle (diet, exercise, and smoking cessation) * Disease self-management (SMBG) * Prevention of complications (BP, Lipid goals, Immunizations) * Consider outpatient Diabetes Self-Management Education & Support * Most patients on multiple-dose insulin (MDI) should SMBG * Prior to meals and snacks * At bedtime * Prior to exercise * When they suspect low blood glucose * After treating low blood glucose until they are normoglycemic * Prior to critical tasks such as driving * Occasionally postprandially
--- NOTE | 2021-02-26 13:34 | Discharge Summary ---
Date of Service February 26, 2021 Admission HPI Per Admitting Provider The patient is a 56-year-old male with past medical history including diabetes mellitus, peripheral neuropathy, loss of protective sensation of skin of foot, diabetic foot ulcer on left foot, obesity with BMI 36, lower back pain and musculoskeletal pain. He has been following with wound care regarding his left foot, he developed a callus on the base. He reports that about 2 weeks ago he had a bleb open and drain on his right fifth toe, which appeared to heal, but now over the past 48 hours has developed the above symptoms. Principal Diagnosis Right foot diabetic infection, s/p 5th toe amputation and tenosynovectomy Discharge Exam Constitutional WD/WN, vitals as above Neck trachea midline, no thyromegaly Respiratory normal respiratory effort, lungs clear to auscultation Cardiovascular RRR, no murmur, no edema Chest (Breasts) Chest: normal inspection of chest Gastrointestinal (Abdomen) normal bowel sounds, soft, nontender, no hepatosplenomegaly Musculoskeletal Extremities: + extremities abnormal to inspection (Right foot/ankle in dressing and YOSELIN wrap), no cyanosis and no clubbing Neurologic moves all extremities and awake; no focal motor deficits Psychiatric A+Ox3, euthymic affect Lymphatic no lymphedema Discharge Data Allergies Allergy/AdvReac Type Severity Reaction Status Date / Time No Known Allergies Allergy Unknown Verified 02/20/21 23:18 Consultations 02/21/21 00:12 ED Decision to Admit Stat 02/21/21 19:21 Consult Orthopedic Surgery Routine 02/23/21 19:21 Consult Infectious Diseases Routine Procedures Performed Operation Date: 02/24/21 07:00 Actual Procedures p Right 5th Toe Amputation(Right) - Naun Tony DO Ordered Studies 02/21/21 01:05 CT foot RT wo con Urgent 02/21/21 03:00 US arterial duplex LE RT Routine Diabetes Follow up Diabetes Follow-up Needed for HgbA1c >9% Hospital Course (1) Diabetic infection of right foot: Diabetic foot infection/ascending lymphangitis- X-ray and CT of the right foot concerning for osteomyelitis versus gas gangrene of the fifth right toe Day 6 of vancomycin, and Zosyn. Surface Culture with corynebacterium Intraoperative cultures now pending-Gram stain with gram-positive cocci but prelim cultures are just skin pedro, anaerobes pending Orthopedics consulted. Now s/p right 5th toe amputation and 5th tenosynovectomy -post-op doing well, f/u with Ortho in office, heel weight bearing only in DARCO shoe, daily dressing changes -consult infectious disease for choice of antibiotics and time course pos toperatively-recommends awaiting cultures, and hopeful that the organism will be sensitive to a p.o. antibiotic, with Augmentin 500mg po tid x 6 weeks -recommend weekly CBC, CMP, CRP x 6 weeks and then CRP every other week until normal after that as per ID FInal Wound cultures pending at discharge but doing well, they likely are not going to grow anything but he has a h/o Group C Strep and Proteus both sensitive to AUgmentin -continue probiotics (2) DM (diabetes mellitus): restart Metformin on discharge along with Lantus 20 units once daily and titrate up as needed received Diabetes education extensively here and will check glucose at home tid Hemoglobin A1c 10.4% (3) Diabetic peripheral neuropathy associated with type 2 diabetes mellitus: No pain with this He is supposed to be getting new diabetic shoes and orthopedic shoe store in near future Follows with Dr. Louis Stanton for podiatry Diabetic education consulted for better diabetic control (4) Hypercholesterolemia: Continue atorvastatin (5) Hypertension: continue lisinopril 5 mg daily DVT Proph-SCD to left leg Dispo-dc to home on po abx, weekly labs, f/u with Ortho in 1 week Total Time Total Time Spent Total Time Spent (In Minutes): 40 min Discharge Plan Discharge Items Patient Disposition: Home - Self-Care Reason For Visit: DIABETIC FOOT INFECTION Discharge Diagnosis: Diabetic foot infection, fifth toe amputation Condition on Discharge: Fair Activity: As commented below Weightbearing: Right weightbearing Weightbearing Comment: Heel weightbearing only with support shoe! Non-emergency contact: Primary Care Provider and Surgeon Call non-emergency contact if: you have any medication questions, your symptoms worsen, your pain is not controlled, your temperature is above 101.5, your wound has increased redness and your wound has increased drainage Follow-up/Referrals: Naun Tony DO [Surgeon] - (Please call for follow up appointment within 1 week.) Louis Nelson, PA-C [Outside Practitioners] - (Please follow up with your PCP within 1-2 weeks.) Louis Stanton, DPM, MS [Primary Care Provider] - Diet: Carb Consistent or DM2 Ambulatory Orders: Complete Blood Count with Diff (Routine) Timeframe: 3 Days Location: Determined by Patient Ordered By: Meredith Diaz Comprehensive Metabolic Panel (Routine) Timeframe: 3 Days Location: Determined by Patient Ordered By: Meredith Diaz C Reactive Protein (Routine) Timeframe: 3 Days Location: Determined by Patient Ordered By: Meredith Dunn Attending Provider Instructions: You were admitted for a foot infection and underwent an amputation of your right 5th toe and surgical debridement of the tendon of that toe. Please continue on an oral antibiotic called Augmentin three times a day for the next 6 weeks. You will need to have weekly labs drawn to check your CBC, CMP, and CRP and then a CRP once every other week after that until normal. For your diabetes, you were started on insulin once daily. Please check your sugars three times a day before your meals and follow up with your PCP within 1 week after discharge. Mona Pattern Grader Supervisor Provider Instructions: ACTIVITY RECOMMENDATIONS: Limitations: Heel weight bearing only if able to tolerate. SPECIAL CARE INSTRUCTIONS: * Some drainage onto the dressing is normal and is no cause for alarm. * Some swelling is natural especially after walking. * When resting, keep your foot elevated above the level of your heart. * Call [facility] if you notice: -Increased drainage or redness -Fever over 101 degrees F -Severe constant pain BANDAGE: * DAILY DRESSING CHANGES. * Keep bandage/cast dry at all times. FOLLOW UP VISIT WITH DR. TONY If appointment is not already scheduled: Please call [facility] after you get home today to schedule a follow-up appointment for [address] Tony at . Pending Studies at Discharge: Yes (Final Wound Culture) Stand-Alone Forms: My [facility] Medications and DC Order Prescriptions: New Saccharomyces boulardii [Florastor] 250 mg Capsule 250 mg PO DAILY Qty: 30 RF: 0 Lantus Solostar U-100 Insulin 100 unit/mL (3 mL) Insulin Pen 20 unit SC QAM Qty: 15 RF: 0 amoxicillin-pot clavulanate [Augmentin] 500-125 mg tablet 1 tab PO TID 42 Days Qty: 126 RF: 0 (DME) OneTouch Verio test strips Strip See Rx Instructions .Route Qty: 100 RF: 0 (DME) lancets [OneTouch Delica Lancets] 33 gauge misc See Rx Instructions .Route Qty: 100 RF: 0 (DME) pen needle, diabetic [Pen Needle] 32 gauge x 5/32" needle See Rx Instructions .Route Qty: 50 RF: 0 Continued atorvastatin 20 mg tablet 20 mg PO DAILY RF: 0 metformin 1,000 mg tablet 1,000 mg PO BID RF: 0 lisinopril 5 mg tablet 5 mg PO DAILY RF: 0 Discharge Orders: Discharge Order (Routine); Ordered 02/26/21 Ordered By: Meredith Diaz Admission Data Admit Date/Time: 02/21/21 01:07 Attending Provider: Meredith Diaz Admit Provider: Brenden Wyatt Primary Care Provider: Louis Stanton Other Providers: Brenden Wyatt ; Dominguez Ribeiro ; Naun Tony ; Jones Rivera ; Thais Williamson ; Sloan El ; Donna Abad ; Nathanael Delgadillo ; Asif Henderson ; Philippe Jung ; Brody Osei ; Asif Bro ; George Green ; Pablo Holland ; Arnulfo Santana ; Joesph De La Cruz ; Donna Hanna ; Marcio Dowd ; Juanjo De León ; Carmen Benitez ; Louis Brown ; Yvonne Sharpe ; Roman Martin ; Ezra Callejas ; Francisco Neville ; Johan Polanco I. ; José Miguel Rosen II ; Ines Bull ; Philippe Dodge ; Killian Figueredo Coding Level of Care Code D/C DAY MANAGEMENT >30 MINS Diagnoses Diabetic infection of right foot E11.628; L08.9 DM (diabetes mellitus) E11.9 Diabetes mellitus complication status: without complication Diabetes mellitus intermediate insulin use: without terminal manager use Diabetes mellitus type: type 2 Diabetic peripheral neuropathy associated with type 2 diabetes mellitus E11.42 Hypercholesterolemia E78.00 Hypertension I10
== END 2021-02-26 15:57 | disposition home or self-care (01) | DRG 617 ==
LOC: ED 21:05 → 3N 02-21 01:07 → SUATTDRO 02-21 01:07 → 3N 02-21 01:37

== ENCOUNTER 2025-03-21 22:00 | Inpatient (IN) ==
[2025-03-21] MEDS ORDERED: VANCOMYCIN CONSULT ACTIVE PRN (22:17)
[2025-03-21 23:07] LABS: Hematocrit (blood only) 45.2 % (42.0-52.0); Hemoglobin 16.1 g/dL (14.0-18.0); Immature Granulocytes # (auto) 0.03 K/uL (0.01-0.20); Immature Granulocytes % (auto) 0.3 %; Mean Corpuscular Hemoglobin 32.3 pg (25.0-34.0); Mean Corpuscular Volume 90.6 fL (80.0-100.0); Platelet Count 233 K/uL (130-400); RDW Standard Deviation 41.7 fL (36.4-46.3); Red Blood Count 4.99 M/uL (4.70-6.10); White Blood Count 9.94 K/ul (4.8-10.8)
[2025-03-21] MEDS: cefTRIAXone SODIUM 2,000 MG/50 ML BAG IV STA (23:08)
--- NOTE | 2025-03-21 23:08 | Emergency Department Note ---
History of Present Illness General Chief complaint: Infection, Wound Stated complaint: RT FOOT WOUND, REF BY FPGA ENGINEER FOR ANTIBIOTICS Time Seen by Provider: 03/21/25 22:07 History of Present Illness This 60-year-old male with diabetes presents ER complaining of right foot infection. Patient has been followed by Dr. Stanton this week and was placed on Keflex and then Augmentin. The 2nd and 3rd toes are erythematous and edematous and infected. The nails have been removed. Patient states the redness has gotten much worse. He has neuropathy and cannot really feel his toes. He fifth digit started been surgically removed. Patient denies fevers, chest pain, dyspnea or any other medical complaints. Home Medications Medication Instructions Recorded Confirmed Type atorvastatin 20 mg tablet 20 mg PO QAM 12/13/20 03/21/25 History lisinopril 5 mg tablet 5 mg PO QAM 12/13/20 03/21/25 History metformin 1,000 mg tablet 1,000 mg PO BID 12/13/20 03/21/25 History blood sugar diagnostic (OneTouch #100 ea 02/26/21 03/21/25 Rx Verio test strips) insulin glargine 100 unit/mL (3 20 unit (0.2 mL) SC QAM #15 mL 02/26/21 03/21/25 Rx mL) subcutaneous pen (Lantus Solostar U-100 Insulin) lancets 33 gauge (OneTouch Delica #100 ea 02/26/21 03/21/25 Rx Lancets) pen needle, diabetic 32 gauge x #50 ea 02/26/21 03/21/25 Rx 5/32" (Pen Needle) Allergies Allergy/AdvReac Type Severity Reaction Status Date / Time No Known Allergies Allergy Unknown Verified 12/06/22 17:49 Past Med/Surg History Problem List (Updated 03/21/25 @ 23:36 by Jaida Beverly PA-C) Diabetic infection of right foot (Acute) Obesity Hypertension Hypercholesterolemia Diabetic infection of right foot DM (diabetes mellitus) (Chronic) Cellulitis (Acute) Dysesthesia (Chronic) Loss of protective sensation of skin of foot (Chronic) Diabetic peripheral neuropathy associated with type 2 diabetes mellitus (Chronic) Diabetic foot ulcer associated with type 2 diabetes mellitus (Chronic) H/O hernia repair (Chronic) Lower back pain (Chronic) Musculoskeletal pain (Chronic) Strain of calf muscle (Chronic) Medical History Type 2 diabetes mellitus with diabetic polyneuropathy Corns and callosities Social History Smoking Status: Never smoker Hx Alcohol Use: No Hx Substance Use: No Preferred Language: Azerbaijani Communication Ability: Effective Visual Impairment: Limited Hearing Ability: Normal Grey Goods Examiner Required: No Beliefs That Will Affect Care: None marital status: Single Current Living Situation: Spouse Current Living Situation Comment: lives at home with Tory knox current occupational status: employed current occupation: [employer] Feels Safe at Home: Yes Assistive Devices: Glasses and Special Shoe Review of Systems A total of 10 systems reviewed and were otherwise negative Physical Exam Vital Signs Vital Signs - 24 hr 03/21/25 22:06 03/21/25 23:05 03/21/25 23:09 Temperature 36.6 C Temperature Source Oral Pulse Rate 89 85 87 Respiratory Rate 18 24 Respiratory Effort / Characteristics Non-Labored Spontaneous Respiratory Depth Normal Respiratory Pattern Regular Blood Pressure 154/96 H 163/94 H Blood Pressure Mean 115 117 Blood Pressure Position Sitting Pulse Oximetry 96 97 Oxygen Delivery Method Room Air Room Air Sepsis Recent Fever Within 48 Hours No Sepsis New/Unexplained Change in Mental Status N/A Sepsis Action Taken by Nursing No Action Required VITALS: Vitals are noted on the nurse's note and reviewed by myself. Vital signs stable. GENERAL: Pleasant patient with girlfriend present, in no acute distress, nondiaphoretic, well-developed well-nourished. SKIN: Capillary reflex less than 2 seconds. HEENT: Normocephalic. PERRLA. EOMI. Nares patent. Mucous membranes moist. Neck is supple without nuchal rigidity. HEART: Regular rate and rhythm LUNGS: Clear to auscultation bilaterally without wheezes, rales or rhonchi. No retractions or accessory muscle use. ABDOMEN: Positive bowel sounds x 4. Normal tympanic percussion. Soft, nontender, without masses or organomegaly. Hernandez sign negative. No guarding or rebound tenderness. no CVA tenderness MUSCULOSKELETAL: No gross musculoskeletal defects. Right foot 2nd and 3rd toes erythematous and edematous concerning for infection. Culture taken and sent. Drainage was coming out of the second toe. No calf tenderness bilaterally. Pedal pulses +2 equal present bilaterally. NEURO: Patient was alert and oriented to person place and time. No focal neurological deficits. Course Administered Medications Sodium Chloride (Nss) 1,000 mls @ 75 mls/hr IV .[id number] STA Stop: 03/22/25 13:12 Last Admin: 03/22/25 01:17 Dose: 75 mls/hr Documented By: RAKESH Insulin Aspart (Insulin Aspart Per Unit Charge) 0 units SC ACHS STARR Stop: 04/21/25 01:07 Last Admin: 03/22/25 01:32 Dose: 3 units Documented By: RAKESH Co-signed By: MARYCHUYK Discontinued Medications Ceftriaxone Sodium (Rocephin) 2,000 mg in 50 mls @ 100 mls/hr IV NOW STA Stop: 03/21/25 22:46 Last Infusion: 03/21/25 23:40 Dose: Infused Documented By: Admin: 03/21/25 23:08 Dose: 100 mls/hr Documented By: SHANEKA Vancomycin HCl 2,250 mg/ (Sodium Chloride) 545 mls @ 200 mls/hr IV NOW ONE Stop: 03/22/25 01:00 Last Admin: 03/21/25 23:44 Dose: Not Given Documented By: SHANEKA Doxycycline Hyclate 100 mg/ (Dextrose) 100 mls @ 50 mls/hr IV NOW STA Stop: 03/22/25 01:41 Last Admin: 03/22/25 01:17 Dose: 50 mls/hr Documented By: RAKESH Piperacillin Sod/Tazobactam Sod (Zosyn) 4.5 gm in 100 mls @ 200 mls/hr IV ONE STA; Protocol Stop: 03/22/25 00:40 Last Infusion: 03/22/25 01:05 Dose: Infused Documented By: Admin: 03/22/25 00:31 Dose: 200 mls/hr Documented By: SHANEKA Ioversol (Optiray 320 100ml) 94 ml IV ONCE ONE Stop: 03/22/25 00:53 Last Admin: 03/22/25 00:53 Dose: 94 ml Documented By: TRISTA Medical Decision Making Medical Records Attestation: I reviewed the patient's medical records. Home Medications Current Medication List: was personally reviewed by me Laboratory Data Attestation: I reviewed the patient's lab results. 03/21/25 22:54 03/21/25 22:54 Lab Results 03/21/25 Range/Units 22:54 WBC 9.94 (4.8-10.8) K/ul RBC 4.99 (4.70-6.10) M/uL Hgb 16.1 (14.0-18.0) g/dL Hct 45.2 (42.0-52.0) % MCV 90.6 (80.0-100.0) fL MCH 32.3 (25.0-34.0) pg MCHC 35.6 (32.0-36.0) g/dL RDW Std Deviation 41.7 (36.4-46.3) fL RDW Coeff of Lalitha 12.7 (11.5-14.5) % Plt Count 233 (130-400) K/uL MPV 9.0 L (9.4-12.4) fL Immature Gran % (Auto) 0.3 % Neut % (Auto) 67.7 % Lymph % (Auto) 22.5 % [place] % (Auto) 8.4 % Eos % (Auto) 0.7 % Baso % (Auto) 0.4 % Neut # (Auto) 6.73 H (1.40-6.50) K/uL Lymph # (Auto) 2.24 (1.20-3.40) K/uL [place] # (Auto) 0.83 H (0.11-0.59) K/uL Eos # (Auto) 0.07 (0.00-0.50) K/uL Baso # (Auto) 0.04 (0.00-0.20) K/uL Immature Gran # (Auto) 0.03 (0.01-0.20) K/uL ESR 25 H (0-20) mm/hr Sodium 134 L (136-145) mmol/L Potassium 4.4 (3.5-5.1) mmol/L Chloride 101 (98-107) mmol/L Carbon Dioxide 24 (21-32) mmol/L Anion Gap 9 (3-11) BUN 17 (6-23) mg/dl Creatinine 0.94 (0.6-1.4) mg/dl Est Cr Clr Drug Dosing 104.6 ml/min eGFR 93.38 BUN/Creatinine Ratio 18.1 (10-20) Glucose 209 H (70-99(Fasting)) mg/dl Calcium 10.0 (8.6-10.3) mg/dl Total Bilirubin 0.6 (0.2-1.0) mg/dl AST 15 (13-39) U/L ALT 10 (7-52) U/L Alkaline Phosphatase 103 (34-104) U/L C-Reactive Protein 1.87 H (0-0.5) mg/dl Total Protein 7.7 (6.0-8.3) gm/dl Albumin 4.5 (3.4-5.0) gm/dl Globulin 3.2 (2.5-4.0) gm/dl Albumin/Globulin Ratio 1.4 (0.9-2) Imaging Data Attestation: I personally reviewed and interpreted this imaging study as follows: MDM Narrative Prior records reviewed and summarized as above. Triage Nursing notes reviewed. Additional history obtained from family. The patient's history was concerning for swelling and redness of the skin. Differential diagnosis: Etiologies such as osteomyelitis, cellulitis, abscess, MRSA infection, DVT, necrotizing fasciitis, dermatitis, drug eruption, as well as others were entertained.. Physical examination: As above ER treatment provided: Wound culture taken and sent, Rocephin and vancomycin were ordered On reassessment the patient felt better. Diagnostics interpreted by me: The labs Independently Interpreted by myself revealed elevated inflammatory markers. Hyperglycemia without DKA Cultures pending Imaging studies: Right foot with no obvious signs of osteomyelitis per my independent interpretation Consultation: A consultation was placed with the hospitalist. The case was discussed and diagnostics were reviewed. The patient was evaluated in the ER for further treatment. This appears to be diabetic foot infection of the right foot that is getting worse. Patient started on IV antibiotics. Cultures taken and sent. Medicine was consulted case discussed. He will be evaluated for admission. By the evaluation outlined above emergent etiologies such as necrotizing fasciitis, DVT, as well as others were deemed relatively unlikely. The pt informed about the findings as listed above. All questions were answered and pleased with the treatment. The chart was completed utilizing Vizibility recognition software. Grammatical errors, random word insertions, pronoun errors, and incomplete sentences are an occassional consequence of this system due to software limitations, ambient noise, and hardware issues. Any formal questions or concerns about the content, text, or information contained within the body of this dictation should be directly addressed to the physician field assistant for clarification. Impression & Plan Diabetic infection of right foot Discharge Plan Visit Data Chief Complaint: Infection, Wound Stated Complaint: RT FOOT WOUND, REF BY FPGA ENGINEER FOR ANTIBIOTICS ED Provider: Philippe Alfredo ED Midlevel Provider: Jaida Beverly Discharge Problem: Diabetic infection of right foot Patient Disposition: Admitted As Inpatient Condition: Good Discharge Instructions Interventions: ED Discharge Assessment Last Done: 03/22/25 00:39
[2025-03-21 23:30] LABS: Alanine Aminotransferase 10.0 U/L (7-52); Albumin Globulin Ratio 1.4 (0.9-2); Albumin Level 4.5 gm/dl (3.4-5.0); Alkaline Phosphatase 103.0 U/L (34-104); Anion Gap 9.0 (3-11); Bilirubin,Total 0.6 mg/dl (0.2-1.0); Blood Urea Nitrogen 17.0 mg/dl (6-23); Calcium 10.0 mg/dl (8.6-10.3); Carbon Dioxide 24.0 mmol/L (21-32); Chloride 101.0 mmol/L (98-107); Creatinine Clr Calc Pharmacy 104.6 ml/min; Globulin 3.2 gm/dl (2.5-4.0); Glucose 209.0 mg/dl (70-99(Fasting)); Potassium 4.4 mmol/L (3.5-5.1); Sodium 134.0 mmol/L (136-145); Total Protein 7.7 gm/dl (6.0-8.3)
[2025-03-21] MEDS: VANCOMYCIN HCL 2,250 MG in SODIUM CHLORIDE 0.9% 500 ML IV ONE (23:44)
--- NOTE | 2025-03-21 23:46 | History & Physical Report ---
Date of Service March 21, 2025 Assessment & Plan (1) Diabetic infection of right foot: Plan: Assessment and plan below following discussion of case with ED provider and reviewing patient history/pertinent normal/abnormal diagnostic test results. Diabetic foot infection right Failed outpatient treatment No sepsis for now hypertension, stable hyperlipidemia, on statin Rx DM 2 insulin requiring, suboptimal control as of recent hemoglobin A1c of 8.7 last November 2024 past tobacco abuse Admit to [facility] Wound CS, doxycycline and cefepime Offload [facility]LE Orthopedics consult (weekend Podiatry coverage) re: diabetic foot infection right Basal-bolus insulin, ISS BG goal 110-140, carb count coverage, update hemoglobin A1c DVT prophylaxis. SCDs for now Re: Bleeding toe wounds Full code Text document was generated using Ntire[employer] voice recognition software. It may contain grammatical or spelling errors. Kindly contact undersigned for clarification of any documentation item in question. History of Present Illness Chief Complaint: Worsening right foot infection Primary Care Provider: William Basurto MD History obtained from patient and records. Medical history significant for hypertension, hyperlipidemia, DM 2 insulin requiring, DM neuropathy, GERD, past tobacco abuse. Last confinement 2020 for diabetic foot infection/toe osteomyelitis. Patient underwent right fifth toe amputation and tenosynovectomy. Patient dropped something heavy on his right foot few weeks ago. Last week, patient noted toenail falling off after stubbing toe with subsequent purulent bloody drainage more than a week ago. Patient seen evaluated at [facility] hydraulic specialist office 4 days ago. Wound with moderate to severe serous drainage noted on right 2nd, 3rd, and 4th toes. Debridement done at the office. Patient prescribed Keflex course. Patient noted worsening swelling of the toe wounds with drainage. No fever, no chills. No chest pain, no SOB. Ceftriaxone administered at the ER. 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 Allergies Allergy/AdvReac Type Severity Reaction Status Date / Time No Known Allergies Allergy Unknown Verified 12/06/22 17:49 Home Medications Medication Instructions Recorded Confirmed Type atorvastatin 20 mg tablet 20 mg PO QAM 12/13/20 03/21/25 History lisinopril 5 mg tablet 5 mg PO QAM 12/13/20 03/21/25 History metformin 1,000 mg tablet 1,000 mg PO BID 12/13/20 03/21/25 History blood sugar diagnostic (OneTouch #100 ea 02/26/21 03/21/25 Rx Verio test strips) insulin glargine 100 unit/mL (3 20 unit (0.2 mL) SC QAM #15 mL 02/26/21 03/21/25 Rx mL) subcutaneous pen (Lantus Solostar U-100 Insulin) lancets 33 gauge (OneTouch Delica #100 ea 02/26/21 03/21/25 Rx Lancets) pen needle, diabetic 32 gauge x #50 ea 02/26/21 03/21/25 Rx 5/32" (Pen Needle) Past Med/Surg History Problem List (Updated 03/21/25 @ 23:36 by Jaida Beverly PA-C) Diabetic infection of right foot (Acute) Obesity Hypertension Hypercholesterolemia Diabetic infection of right foot DM (diabetes mellitus) (Chronic) Cellulitis (Acute) Dysesthesia (Chronic) Loss of protective sensation of skin of foot (Chronic) Diabetic peripheral neuropathy associated with type 2 diabetes mellitus (Chronic) Diabetic foot ulcer associated with type 2 diabetes mellitus (Chronic) H/O hernia repair (Chronic) Lower back pain (Chronic) Musculoskeletal pain (Chronic) Strain of calf muscle (Chronic) Medical History Type 2 diabetes mellitus with diabetic polyneuropathy Corns and callosities Social History Smoking Status: Never smoker Tobacco Type: Smokeless Tobacco (Dip or Chew) Second Hand Exposure: No; Do You Dip or Chew Tobacco: Yes; Tobacco Cessation Education Requested by Patient: No Hx Alcohol Use: No Hx Substance Use: No Preferred Language: Indonesian Communication Ability: Effective Visual Impairment: Limited Hearing Ability: Normal Issue Clerk Required: No Beliefs That Will Affect Care: None marital status: Single Current Living Situation: Significant Other Current Living Situation Comment: lives at home with girlfriendTory current occupational status: employed 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 Other Information That Helps Us Care for You: No Feels Safe at Home: Yes Safety Concerns: Feels Safe At This Time Assistive Devices: Glasses Review of Systems Review of Systems: As per HPI, all other systems reviewed and negative Physical Exam Physical Exam: GENERAL: Comfortable, pleasant, obese, no respiratory distress SKIN: Normal color, warm HEENT: Partial alopecia, bespectacled, pale palpebral conjunctivae, no ptosis, moist buccal mucosa NECK : Supple, no tenderness CHEST : CTA, no tenderness HEART : RRR, no obvious murmurs ABDOMEN: Some distention, nontender EXTREMITIES : Tender, erythematous 2nd, 3rd, and 4th toes of the right foot with necrotic spots and scant drainage, amputation stump right fifth toe, no LE swelling/tenderness, palpable pulses NEUROLOGIC : Coherent, no facial asymmetry, no other gross focality Results & Data Results & Data Vital Signs (Past 12 Hours) Vital Signs Temp Pulse Resp BP Pulse Ox O2 Del Method 03/21/25 23:05 85 03/21/25 22:06 36.6 C 89 18 154/96 H 96 Room Air Laboratory Results Laboratory Results WBC 9.94 K/ul (4.8-10.8) 03/21/25 22:54 RBC 4.99 M/uL (4.70-6.10) 03/21/25 22:54 Hgb 16.1 g/dL (14.0-18.0) 03/21/25 22:54 Hct 45.2 % (42.0-52.0) 03/21/25 22:54 MCV 90.6 fL (80.0-100.0) 03/21/25 22:54 MCH 32.3 pg (25.0-34.0) 03/21/25 22:54 MCHC 35.6 g/dL (32.0-36.0) 03/21/25 22:54 RDW Std Deviation 41.7 fL (36.4-46.3) 03/21/25 22:54 RDW Coeff of Lalitha 12.7 % (11.5-14.5) 03/21/25 22:54 Plt Count 233 K/uL (130-400) 03/21/25 22:54 MPV 9.0 fL (9.4-12.4) L 03/21/25 22:54 Immature Gran % (Auto) 0.3 % 03/21/25 22:54 Neut % (Auto) 67.7 % 03/21/25 22:54 Lymph % (Auto) 22.5 % 03/21/25 22:54 [place] % (Auto) 8.4 % 03/21/25 22:54 Eos % (Auto) 0.7 % 03/21/25 22:54 Baso % (Auto) 0.4 % 03/21/25 22:54 Neut # (Auto) 6.73 K/uL (1.40-6.50) H 03/21/25 22:54 Lymph # (Auto) 2.24 K/uL (1.20-3.40) 03/21/25 22:54 [place] # (Auto) 0.83 K/uL (0.11-0.59) H 03/21/25 22:54 Eos # (Auto) 0.07 K/uL (0.00-0.50) 03/21/25 22:54 Baso # (Auto) 0.04 K/uL (0.00-0.20) 03/21/25 22:54 Immature Gran # (Auto) 0.03 K/uL (0.01-0.20) 03/21/25 22:54 ESR 25 mm/hr (0-20) H 03/21/25 22:54 Sodium 134 mmol/L (136-145) L 03/21/25 22:54 Potassium 4.4 mmol/L (3.5-5.1) 03/21/25 22:54 Chloride 101 mmol/L (98-107) 03/21/25 22:54 Carbon Dioxide 24 mmol/L (21-32) 03/21/25 22:54 Anion Gap 9 (3-11) 03/21/25 22:54 BUN 17 mg/dl (6-23) 03/21/25 22:54 Creatinine 0.94 mg/dl (0.6-1.4) 03/21/25 22:54 Est Cr Clr Drug Dosing 104.6 ml/min 03/21/25 22:54 eGFR 93.38 03/21/25 22:54 BUN/Creatinine Ratio 18.1 (10-20) 03/21/25 22:54 Glucose 209 mg/dl (70-99(Fasting)) H 03/21/25 22:54 Calcium 10.0 mg/dl (8.6-10.3) 03/21/25 22:54 Total Bilirubin 0.6 mg/dl (0.2-1.0) 03/21/25 22:54 AST 15 U/L (13-39) 03/21/25 22:54 ALT 10 U/L (7-52) 03/21/25 22:54 Alkaline Phosphatase 103 U/L (34-104) 03/21/25 22:54 C-Reactive Protein 1.87 mg/dl (0-0.5) H 03/21/25 22:54 Total Protein 7.7 gm/dl (6.0-8.3) 03/21/25 22:54 Albumin 4.5 gm/dl (3.4-5.0) 03/21/25 22:54 Globulin 3.2 gm/dl (2.5-4.0) 03/21/25 22:54 Albumin/Globulin Ratio 1.4 (0.9-2) 03/21/25 22:54 CT right foot: Amputation of fifth toe, distal to metatarsal bone. Mild subcutaneous edema is noted involving foot. Inferior and posterior calcaneal spur seen.
[2025-03-22] MEDS ORDERED: PROMETHAZINE 6.25 MG/50.25 ML BAG IV PRN (00:10)
[2025-03-22] MEDS ORDERED: MoRPHine SULFATE 4 MG/ML 1 ML CARP\\VIAL IV PRN ×2 (00:10→13:53)
[2025-03-22] MEDS: PIPERACILLIN/TAZOBACTAM 4.5 GM/100 ML BAG IV STA (00:31)
[2025-03-22] MEDS: OPTIRAY 320 100ml IV ONE (00:53)
[2025-03-22] MEDS ORDERED: DEXTROSE 50% 50 ML SYRINGE IV PRN (01:08)
[2025-03-22] MEDS ORDERED: GLUCOSE 40% GEL 15 GM TUBE PO PRN (01:08)
[2025-03-22] MEDS ORDERED: CARBOHYDRATES FOR HYPOGLYCEMIA PO PRN (01:08)
[2025-03-22] MEDS ORDERED: GLUCAGON FOR INJ 1 MG VIAL SQ PRN (01:08)
[2025-03-22] MEDS ORDERED: GLUCOSE 10 TAB/TUBE PO PRN (01:08)
[2025-03-22] MEDS: DOXYCYCLINE HYCLATE 100 MG in DEXTROSE 5% MINI-B 100 ML IV STA (01:17)
[2025-03-22] MEDS: SODIUM CHLORIDE 0.9% 1,000 ML IV STA (01:17)
[2025-03-22] MEDS: INSULIN ASPART PER UNIT CHARGE SC SCH (01:32)
--- NOTE | 2025-03-22 02:21 | CT Scan Report ---
EXAM: CT foot RT w con CLINICAL HISTORY: swelling TECHNIQUE: Contiguous axial CT images of right foot were obtained with intravenous contrast. Coronal and sagittal reconstructions were likewise performed and indicated to increase the sensitivity for detecting clinically relevant pathology. CT scan was performed according to ALARA (as low as reasonably achievable). COMPARISON: 02/21/2021 07:49:32 SMALL ANIMAL VETERINARIAN FINDINGS: Amputation of fifth toe, distal to metatarsal bone. Mild subcutaneous edema is noted involving foot. Inferior and posterior calcaneal spur seen. No acute fracture or dislocation. No destructive osseous lesion. The visualized muscles and tendons appear grossly unremarkable. No cortical destruction to suggest osteomyelitis. No abscess formation. No significant joint effusion. There are no soft tissue masses. Normal subcutaneous adipose space. IMPRESSION: Amputation of fifth toe, distal to metatarsal bone. Mild subcutaneous edema is noted involving foot. Inferior and posterior calcaneal spur seen. No other osseous abnormality seen. Electronically signed by Jordon Hernandez 03-22-2025 02:20 AM
[2025-03-22] MEDS ORDERED: PIPERACILLIN/TAZOBACTAM 4.5 GM/100 ML BAG IV SCH (06:00)
[2025-03-22 06:57] LABS: Hematocrit (blood only) 41.2 % (42.0-52.0); Hemoglobin 14.9 g/dL (14.0-18.0); Immature Granulocytes # (auto) 0.02 K/uL (0.01-0.20); Immature Granulocytes % (auto) 0.2 %; Mean Corpuscular Hemoglobin 32.6 pg (25.0-34.0); Mean Corpuscular Volume 90.2 fL (80.0-100.0); Platelet Count 217 K/uL (130-400); RDW Standard Deviation 41.2 fL (36.4-46.3); Red Blood Count 4.57 M/uL (4.70-6.10); White Blood Count 8.91 K/ul (4.8-10.8)
[2025-03-22 07:18] VITALS: RESP 18
[2025-03-22 07:32] LABS: Hemoglobin A1C 9.4 % (4.5-5.6)
[2025-03-22 07:35] LABS: Anion Gap 8.0 (3-11); Blood Urea Nitrogen 14.0 mg/dl (6-23); Calcium 9.5 mg/dl (8.6-10.3); Carbon Dioxide 28.0 mmol/L (21-32); Chloride 101.0 mmol/L (98-107); Creatinine Clr Calc Pharmacy 100.3 ml/min; Glucose 126.0 mg/dl (70-99(Fasting)); Potassium 4.3 mmol/L (3.5-5.1); Sodium 137.0 mmol/L (136-145)
--- NOTE | 2025-03-22 07:53 | XRay Report ---
RIGHT FOOT 3 VIEWS CLINICAL HISTORY: Sores on the second and third toes. Infection. FINDINGS: 3 views of the right foot are compared to study dated 11/05/[address] of th e foot dated 02/21/2021. The skeletal structures are osteopenic. No fracture is seen. There is postsu rgical change from fifth toe resection through the metatarsophalangeal joint. No bony erosion or timo ostitis is identified. There are large dorsal and plantar spurs. A high arch is incidentally noted. M ild arthritic change is seen throughout the foot. Soft tissue swelling is noted in the forefoot. IMPRESSION: 1. Soft tissue swelling with no acute bony abnormality identified. 2. Postsurgical and mild degenerative change as above. 3. Large heel spurs. Electronically signed by: Johnny Bullock M.D. 03/22/2025 7:51 AM
[2025-03-22] MEDS: ATORVASTATIN 20 MG TAB PO SCH (08:22)
[2025-03-22] MEDS: LANTUS PER UNIT CHARGE SC SCH (08:26)
[2025-03-22] MEDS: CEFEPIME 2000MG 2,000 MG/20 ML SYR IV SCH (08:30)
--- NOTE | 2025-03-22 09:49 | Orthopedic Consultation ---
Date of Consultation March 22, 2025 Assessment & Plan (1) Diabetic infection of right foot: Patient seen in conjunction with Dr. Francis. Patient with what appears to be a progressive infection in his right toes extending into the forefoot. He failed outpatient antibiotic therapy. States that he is feeling better after receiving IV and oral antibiotics. Laboratory and imaging studies were reviewed. There is no evidence of osteomyelitis on x-ray or CT scan. Options of care were reviewed with the patient. Unfortunately he has let his diabetes go given recent A1c of 9.4. Patient stated that this was a wake-up call for him. He is very concerned about losing his toes and is not interested in pursuing surgical intervention at this time. We will order an MRI to evaluate for osteomyelitis. This may influence duration of antibiotic therapy and possible surgical management as an outpatient as he is established with podiatry in [place]. Agree with continuing antibiotics. Consider infectious disease consult. Will need outpatient follow-up with podiatry. Will review MRI findings once obtained. Supervising Physician Co-Signing Physician Notes I saw and examined the patient, reviewed his imaging and chart, formulated the plan above and performed the substantive portion of the visit. Agree with above note. History of Present Illness Reason for Consultation: Right foot infection Attending Physician: Pratik Arroyo MD History of Present Illness Garett Paul is a 60 male with a history of diabetes, neuropathy, hypertension, GERD, who presented to the emergency department yesterday due to concern for worsening infection in his right toes and foot. Patient states that about 2 weeks ago he noticed that his right second toenail was cracked with blood under it. He is not sure how this occurred, cannot recall any specific injury. He was seen by his gasoline tester in [place] and his nail was subsequently removed. Patient developed redness and drainage and was prescribed Keflex. Symptoms worsened, so he was switched to Augmentin as an outpatient but decided to come to the emergency department after taking several doses due to worsening redness and increased drainage Patient has undergone an x-ray of the foot as well as a CT scan. No evidence of osteomyelitis was identified on either of these studies. Patient was subsequently admitted to the hospital for IV antibiotic management and orthopedics was consulted. Of note, patient reports that he is starting to feel better after receiving IV antibiotics. Patient has a history of diabetic infection in his right pinky toe in 2020 requiring amputation. Patient admits that he has not been taking care of his diabetes recently and has been consuming foods that he realizes he should not be eating as much lately. He works in [employer] in this facility. Denies any fevers or chills. His neuropathy extends to the middle of his foot generally. Denies any history of MRSA. Allergies Allergy/AdvReac Type Severity Reaction Status Date / Time No Known Allergies Allergy Unknown Verified 12/06/22 17:49 Home Medications Medication Instructions Recorded Confirmed Type atorvastatin 20 mg tablet 20 mg PO QAM 12/13/20 03/21/25 History lisinopril 5 mg tablet 5 mg PO QAM 12/13/20 03/21/25 History metformin 1,000 mg tablet 1,000 mg PO BID 12/13/20 03/21/25 History blood sugar diagnostic (OneTouch #100 ea 02/26/21 03/21/25 Rx Verio test strips) insulin glargine 100 unit/mL (3 20 unit (0.2 mL) SC QAM #15 mL 02/26/21 03/21/25 Rx mL) subcutaneous pen (Lantus Solostar U-100 Insulin) lancets 33 gauge (OneTouch Delica #100 ea 02/26/21 03/21/25 Rx Lancets) pen needle, diabetic 32 gauge x #50 ea 02/26/21 03/21/25 Rx 5/32" (Pen Needle) Patient History Medical History Type 2 diabetes mellitus with diabetic polyneuropathy Corns and callosities Social History Smoking Status: Never smoker Tobacco Type: Smokeless Tobacco (Dip or Chew) Second Hand Exposure: No; Do You Dip or Chew Tobacco: Yes; Tobacco Cessation Education Requested by Patient: No Hx Alcohol Use: No Hx Substance Use: No Preferred Language: Georgian Communication Ability: Effective Visual Impairment: Limited Hearing Ability: Normal Cleaning Technician Required: No Beliefs That Will Affect Care: None marital status: Single Current Living Situation: Significant Other Current Living Situation Comment: lives at home with girlfriend, Tory current occupational status: employed 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 Pleasant. Cardiovascular: Right DP pulse 2+ Musculoskeletal: Right lower extremity: There is erythema, superficial skin sloughing present on the 2nd and 3rd toes. The distal tip of the second toe is black. Erythema and superficial blistering extends onto the lateral aspect of the great toe and there is a superficial blister and sloughing on the fourth toe. Erythema extends into the forefoot. There is lymphatic streaking extending to the ankle along the dorsal aspect of the foot. Fifth toe amputation site is well-healed. Patient is able to wiggle all toes. Range of motion of the ankle is full does not cause pain. No calf tenderness. Neurologic: There is decreased sensation to light touch in the right toes extending to the midfoot. Results & Data Vital Signs (Past 12 Hours) Vital Signs Temp Pulse Pulse Resp BP BP Pulse Ox 03/22/25 07:17 97.9 F 66 18 141/76 H 95 03/22/25 01:00 98.1 F 80 19 170/92 H 97 03/22/25 00:00 82 13 125/85 96 03/21/25 23:09 87 24 163/94 H 97 03/21/25 23:05 85 03/21/25 22:06 97.9 F 89 18 154/96 H 96 O2 Del Method 03/22/25 07:17 Room Air 03/22/25 01:00 Room Air 03/22/25 00:00 Room Air 03/21/25 23:09 Room Air 03/21/25 23:05 03/21/25 22:06 Room Air Laboratory Results 03/21/25 22:50 Gram Stain - Final Toe,Right Third Wound Culture - Pending 03/22/25 03/22/25 03/22/25 06:59 06:37 01:29 WBC 8.91 RBC 4.57 L Hgb 14.9 Hct 41.2 L MCV 90.2 MCH 32.6 MCHC 36.2 H RDW Std Deviation 41.2 RDW Coeff of Lalitha 12.5 Plt Count 217 MPV 8.8 L Immature Gran % (Auto) 0.2 Neut % (Auto) 65.8 Lymph % (Auto) 22.9 [place] % (Auto) 9.7 Eos % (Auto) 0.8 Baso % (Auto) 0.6 Neut # (Auto) 5.87 Lymph # (Auto) 2.04 [place] # (Auto) 0.86 H Eos # (Auto) 0.07 Baso # (Auto) 0.05 Immature Gran # (Auto) 0.02 ESR Sodium 137 Potassium 4.3 Chloride 101 Carbon Dioxide 28 Anion Gap 8 BUN 14 Creatinine 0.98 Est Cr Clr Drug Dosing 100.3 eGFR 88.83 BUN/Creatinine Ratio 14.3 Glucose 126 H POC Glucose 124 H 203 H Estimat Average Glucose 223 Hemoglobin A1c 9.4 H Calcium 9.5 Total Bilirubin AST ALT Alkaline Phosphatase C-Reactive Protein Total Protein Albumin Globulin Albumin/Globulin Ratio 03/21/25 22:54 WBC 9.94 RBC 4.99 Hgb 16.1 Hct 45.2 MCV 90.6 MCH 32.3 MCHC 35.6 RDW Std Deviation 41.7 RDW Coeff of Lalitha 12.7 Plt Count 233 MPV 9.0 L Immature Gran % (Auto) 0.3 Neut % (Auto) 67.7 Lymph % (Auto) 22.5 [place] % (Auto) 8.4 Eos % (Auto) 0.7 Baso % (Auto) 0.4 Neut # (Auto) 6.73 H Lymph # (Auto) 2.24 [place] # (Auto) 0.83 H Eos # (Auto) 0.07 Baso # (Auto) 0.04 Immature Gran # (Auto) 0.03 ESR 25 H Sodium 134 L Potassium 4.4 Chloride 101 Carbon Dioxide 24 Anion Gap 9 BUN 17 Creatinine 0.94 Est Cr Clr Drug Dosing 104.6 eGFR 93.38 BUN/Creatinine Ratio 18.1 Glucose 209 H POC Glucose Estimat Average Glucose Hemoglobin A1c Calcium 10.0 Total Bilirubin 0.6 AST 15 ALT 10 Alkaline Phosphatase 103 C-Reactive Protein 1.87 H Total Protein 7.7 Albumin 4.5 Globulin 3.2 Albumin/Globulin Ratio 1.4 Diagnostic Findings Foot X-Ray 03/21/25 22:17 RIGHT FOOT 3 VIEWS CLINICAL HISTORY: Sores on the second and third toes. Infection. FINDINGS: 3 views of the right foot are compared to study dated 11/05/[address] of the foot dated 02/21/2021. The skeletal structures are osteopenic. No fracture is seen. There is postsurgical change from fifth toe resection through the metatarsophalangeal joint. No bony erosion or periostitis is identified. There are large dorsal and plantar spurs. A high arch is incidentally noted. Mild arthritic change is seen throughout the foot. Soft tissue swelling is noted in the forefoot. IMPRESSION: 1. Soft tissue swelling with no acute bony abnormality identified. 2. Postsurgical and mild degenerative change as above. 3. Large heel spurs. Electronically signed by: Johnny Bullock M.D. 03/22/2025 7:[address] 03/22/25 00:10 EXAM: CT foot RT w con CLINICAL HISTORY: swelling TECHNIQUE: Contiguous axial CT images of right foot were obtained with intravenous contrast. Coronal and sagittal reconstructions were likewise performed and indicated to increase the sensitivity for detecting clinically relevant pathology. CT scan was performed according to ALARA (as low as reasonably achievable). COMPARISON: 02/21/2021 07:49:32 BEHAVIORAL HEALTH CLINICIAN FINDINGS: Amputation of fifth toe, distal to metatarsal bone. Mild subcutaneous edema is noted involving foot. Inferior and posterior calcaneal spur seen. No acute fracture or dislocation. No destructive osseous lesion. The visualized muscles and tendons appear grossly unremarkable. No cortical destruction to suggest osteomyelitis. No abscess formation. No significant joint effusion. There are no soft tissue masses. Normal subcutaneous adipose space. IMPRESSION: Amputation of fifth toe, distal to metatarsal bone. Mild subcutaneous edema is noted involving foot. Inferior and posterior calcaneal spur seen. No other osseous abnormality seen. Electronically signed by Jordon Hernandez 03-22-2025 02:20 AM
--- NOTE | 2025-03-22 13:43 | Hospitalist Progress Note ---
Date of Service March 22, 2025 Assessment & Plan (1) Diabetic infection of right foot: Plan: Diabetic Right foot infection Failed outpatient antibiotic treatment H/O osteomyelitis --Foot CT:Amputation of fifth toe, distal to metatarsal bone. Mild subcutaneous edema is noted involving foot. Inferior and posterior calcaneal spur seen. No other osseous abnormality seen. --Foot MRI:pending --Nasal MRSA:pending --Wound culture pending --Blood cultures pending --Continue IV cefepime, doxycycline Appreciate orthopedics input Will consider infectious disease evaluation Hypertension Continue lisinopril Monitor blood pressure Hyperlipidemia Continue atorvastatin DM II Uncontrolled HbA1c 9.4 Continue insulin while hospitalized Monitor blood glucose levels DVT Px: SCDs for now Re: Bleeding toe wounds Code Status Full code Admission and Anticipated Discharge Date Admission Date: March 21, 2025 Subjective Patient is seen and examined at bedside Denies any right foot pain Admits to have right foot drainage with discoloration Denies any chest pain, dyspnea, nausea, vomiting, abdominal pain Review of Systems Review of Systems: All systems reviewed & are unremarkable except as noted in Subjective Physical Exam Physical Exam: Physical Exam: Vitals signs as noted above General Appearance:Overweight, no apparent distress Head: normocephalic, Atraumatic Eyes: normal inspection, EOMI Neck: supple, Trachea midline Respiratory/Chest: Normal breath sounds, CTA, No accessory muscle use Cardiovascular: S1, S2, No murmur Abdomen/GI:Soft, Non tender, protuberant, Bowel sounds present Extremities/Musculoskeletal:normal inspection, no edema, Right foot in dressing, tender Neurologic/Psych:AAOX3, grossly no focal neurological deficits Skin: normal color, warm Results & Data Results & Data Vital Signs (Past 12 Hours) Vital Signs Temp Pulse Resp BP Pulse Ox O2 Del Method 03/22/25 07:17 36.6 C 66 18 141/76 H 95 Room Air Laboratory Results Short CBC 03/21/25 03/22/25 Range/Units 22:54 06:37 WBC 9.94 8.91 (4.8-10.8) K/ul Hgb 16.1 14.9 (14.0-18.0) g/dL Hct 45.2 41.2 L (42.0-52.0) % Plt Count 233 217 (130-400) K/uL BMP 03/21/25 03/22/25 22:54 06:37 Sodium 134 L 137 Potassium 4.4 4.3 Chloride 101 101 Carbon Dioxide 24 28 BUN 17 14 Creatinine 0.94 0.98 Glucose 209 H 126 H Calcium 10.0 9.5 Liver Function 03/21/25 Range/Units 22:54 Total Bilirubin 0.6 (0.2-1.0) mg/dl AST 15 (13-39) U/L ALT 10 (7-52) U/L Alkaline Phosphatase 103 (34-104) U/L Albumin 4.5 (3.4-5.0) gm/dl
--- NOTE | 2025-03-22 19:19 | Magnetic Resonance Report ---
MRI OF THE RIGHT FOREFOOT WITHOUT IV CONTRAST CLINICAL HISTORY: Right foot/toe infection. COMPARISON STUDY: CT scan of the right foot dated 03/22/2025. Right foot x-ray dated 03/21/2025. TECHNIQUE: MRI of the right forefoot is performed utilizing various T1 and T2-weighted sequences in t he axial, sagittal, and coronal planes. IV contrast was not administered for this examination. FINDINGS: There is no MRI evidence of acute fracture. Again seen is postsurgical change from amputati on of the fifth toe through the metatarsophalangeal joint. There is no marrow change identified typic al for osteomyelitis. No bony erosion is seen. Mild degenerative change is noted in the forefoot. Sof t tissue edema is seen throughout the forefoot. No organized fluid collection is identified to sugges t abscess. There are thin pockets of subcutaneous fluid at the dermis involving the first toe, and on the plantar aspect of the fourth and fifth toes suggesting small bullae/blisters. Imaged portions of the plantar fascia are normal in appearance. Imaged portions of the flexor/extensor tendons are norm al in appearance. IMPRESSION: 1. No acute bony abnormality is identified. Specifically, there is no MRI evidence of osteomyelitis. 2. Again seen is postsurgical change from 5th toe amputation. 3. Soft tissue edema is noted throughout the forefoot. Correlate clinically for evidence of celluliti s. 4. There are crescentic pockets the fluid at the dermal surface in the first toe and along the planta r aspect of the fourth and fifth toes. The appearance suggests fluid filled bullae/blisters. Clinical correlation will be essential. Electronically signed by: Johnny Bullock M.D. 03/22/2025 7:17 PM
[2025-03-22] MEDS: DOXYCYCLINE HYCLATE 100 MG CAP PO SCH (21:02)
[2025-03-23 07:18] LABS: Hematocrit (blood only) 43.4 % (42.0-52.0); Hemoglobin 15.2 g/dL (14.0-18.0); Mean Corpuscular Hemoglobin 31.9 pg (25.0-34.0); Mean Corpuscular Volume 91.2 fL (80.0-100.0); Platelet Count 240 K/uL (130-400); RDW Standard Deviation 42.0 fL (36.4-46.3); Red Blood Count 4.76 M/uL (4.70-6.10); White Blood Count 7.32 K/ul (4.8-10.8)
[2025-03-23 07:37] LABS: Anion Gap 8.0 (3-11); Blood Urea Nitrogen 11.0 mg/dl (6-23); Calcium 9.4 mg/dl (8.6-10.3); Carbon Dioxide 26.0 mmol/L (21-32); Chloride 103.0 mmol/L (98-107); Creatinine Clr Calc Pharmacy 111.7 ml/min; Glucose 98.0 mg/dl (70-99(Fasting)); Magnesium 1.8 mg/dl (1.7-2.4); Potassium 4.0 mmol/L (3.5-5.1); Sodium 137.0 mmol/L (136-145)
--- NOTE | 2025-03-23 14:15 | Orthopedic Progress Note ---
Date of Service March 23, 2025 Assessment & Plan (1) Diabetic infection of right foot: Plan: Discussed the x-ray and MRI findings with the patient. Recommend IV antibiotics per the medical team. Consider infectious disease consult to assist in determining the optimum antibiotic treatment regimen for this patient. Discussed with patient that he needs to do a better job controlling his diabetes, as this is a risk factor for infection like he is currently e xperiencing. I also counseled him on cessation of chewing tobacco as this is another risk factor for infection. Patient will follow-up with his sales facilitator at home upon discharge. DVT prophylaxis per the primary team. Orthopedics will sign off. Admission and Anticipated Discharge Date Admission Date: March 21, 2025 Subjective Patient seen and examined on afternoon rounds. He underwent an MRI yesterday of his right foot. He reports that his foot is feeling a little bit better. He was able to walk around his room and out in the hallway earlier today without any significant difficulty. Denies fevers or chills. Continues to receive IV antibiotics which he is tolerating well. Physical Exam Physical Exam: Right foot exam: Dressing was removed. There is some serous drainage on the dressing. Swelling in the 2nd, 3rd and 4th toes is improved from yesterday. Still has erythema roughly unchanged from prior. Intact motor function for the flexor and extensor tendons to the toes. Results & Data Vital Signs (Past 12 Hours) Vital Signs Temp Pulse Resp BP Pulse Ox O2 Del Method 03/23/25 06:50 36.7 C 88 18 147/83 H 94 Room Air Diagnostic Findings I independently interpreted his MRI done yesterday. I agree with the radiologist that there is no evidence for acute osteomyelitis. He does have increased signal within the subcutaneous tissues consistent with cellulitis.
--- NOTE | 2025-03-23 15:08 | Hospitalist Progress Note ---
Date of Service March 23, 2025 Assessment & Plan (1) Diabetic infection of right foot: Plan: Diabetic Right foot infection Failed outpatient antibiotic treatment H/O osteomyelitis --Foot CT:Amputation of fifth toe, distal to metatarsal bone. Mild subcutaneous edema is noted involving foot. Inferior and posterior calcaneal spur seen. No other osseous abnormality seen. --Foot MRI: No acute bony abnormality is identified. Specifically, there is no MRI evidence of osteomyelitis. Again seen is postsurgical change from 5th toe amputation. Soft tissue edema is noted throughout the forefoot. Correlate clinically for evidence of cellulitis. There are crescentic pockets the fluid at the dermal surface in the first toe and along the plantar aspect of the fourth and fifth toes. The appearance suggests fluid filled bullae/blisters. Clinical correlation will be essential. --Nasal MRSA: Negative --Wound culture: Pending --Blood cultures: Negative to date --Continue IV cefepime, doxycycline Appreciate orthopedics input Infectious disease consulted Follows with podiatry Dr. Stanton as outpatient Continue wound care Hypertension Continue lisinopril Monitor blood pressure Hyperlipidemia Continue atorvastatin DM II Uncontrolled HbA1c 9.4 Continue insulin while hospitalized Monitor blood glucose levels DVT Px: SCDs for now Re: Bleeding toe wounds Code Status Full code Admission and Anticipated Discharge Date Admission Date: March 21, 2025 Subjective Patient is seen and examined at bedside No new complaints Denies any right foot pain Also denies any chest pain, dyspnea, nausea, vomiting, abdominal pain Family at bedside Review of Systems Review of Systems: All systems reviewed & are unremarkable except as noted in Subjective Physical Exam Physical Exam: Physical Exam: Vitals signs as noted above General Appearance:Overweight, no apparent distress Head: normocephalic, Atraumatic Eyes: normal inspection, EOMI Neck: supple, Trachea midline Respiratory/Chest: Normal breath sounds, CTA, No accessory muscle use Cardiovascular: S1, S2, No murmur Abdomen/GI:Soft, Non tender, protuberant, Bowel sounds present Extremities/Musculoskeletal:normal inspection, no edema, Right foot in dressing Neurologic/Psych:AAOX3, grossly no focal neurological deficits Skin: normal color, warm Results & Data Results & Data Vital Signs (Past 12 Hours) Vital Signs Temp Pulse Resp BP Pulse Ox O2 Del Method 03/23/25 06:50 36.7 C 88 18 147/83 H 94 Room Air Laboratory Results Short CBC 03/23/25 Range/Units 06:21 WBC 7.32 (4.8-10.8) K/ul Hgb 15.2 (14.0-18.0) g/dL Hct 43.4 (42.0-52.0) % Plt Count 240 (130-400) K/uL [facility] 03/23/25 06:21 Sodium 137 Potassium 4.0 Chloride 103 Carbon Dioxide 26 BUN 11 Creatinine 0.88 Glucose 98 Calcium 9.4
--- NOTE | 2025-03-24 09:39 | Infectious Disease Consult ---
Date of Service March 24, 2025 Telehealth Information I performed this visit using a real-time telehealth connection between my location and the patients location ([facility]). After connecting through interactive tele-video, patient was identified by name and date of and/or wristband check.Patient (or authorized healthcare automobile rental representative) was informed that this was a telemedicine visit and it was being conducted confidentially over secure lines. My office door was closed and no one else was present in the room with me.Patient (or authorized healthcare automobile rental representative) provided consent to proceed with the visit, expressed an understanding of privacy and security of the telemedicine visit, and gave permission to have a hospital automobile rental representative in the room in order to assist with the visit and to conduct portions of the visit, as needed. I informed the patient (or authorized healthcare automobile rental representative) that I reviewed their record and presented the opportunity for them to ask any questions regarding the visit today. The patient agreed to participate. Diabetic foot infection Assessment & Plan (1) Diabetic infection of right foot: Plan: Switch to cefazolin Plan Recommend discontinuing cefepime and doxycycline and starting cefazolin .If no further surgery is indicated and osteomyelitis has been ruled out can continue c efazolin as inpatient and switch to cefadroxil for 2 weeks on discharge .Thank you for allowing us to participate in the care of this patient ID will sign off History of Present Illness History of Present Illness 60 y/o M PMHx hypertension, hyperlipidemia, DM 2 insulin requiring, DM neuropathy, GERD, past tobacco abuse.Patient underwent right fifth toe amputation and tenosynovectomy in 2020 .He reports he dropped something heavy on his right foot few weeks ago prior to admission and last week he noticed his toenail was falling off with subsequent purulent bloody drainage.Patient was evaluated at [facility] cosmetic surgeon office 4 days prior to admission.He had debridement done at the office and was prescribed keflex but his wound worsened and he was admitted to [facility] and was evaluted by Orthopedics who recommended a MRI .His MRI of right foot did not reveal osteomyelitis and his wound cultures have grown MSSA and bets strep and he is currently on cefepime and doxycycline Allergies Allergy/AdvReac Type Severity Reaction Status Date / Time No Known Allergies Allergy Unknown Verified 12/06/22 17:49 Home Medications Medication Instructions Recorded Confirmed Type atorvastatin 20 mg tablet 20 mg PO QAM 12/13/20 03/21/25 History lisinopril 5 mg tablet 5 mg PO QAM 12/13/20 03/21/25 History lancets 33 gauge (OneTouch Delica #100 ea 02/26/21 03/21/25 Rx Lancets) pen needle, diabetic 32 gauge x #50 ea 02/26/21 03/21/25 Rx 5/32" (Pen Needle) L.acidop,casei,lactis,rham-B.lact,yareli 1 cap PO DAILY #15 caps 03/24/25 Rx 625 mg (10 billion cell) capsule (Advanced Probiotic) blood sugar diagnostic (OneTouch #100 ea 03/24/25 Rx Verio test strips) blood sugar diagnostic (OneTouch #100 ea 03/24/25 03/21/25 Rx Verio test strips) blood-glucose meter #1 ea 03/24/25 Rx cefadroxil 500 mg capsule 500 mg PO BID #28 caps 03/24/25 Rx insulin glargine 100 unit/mL (3 22 unit (0.22 mL) SC QAM #15 mL 03/24/25 03/21/25 Rx mL) subcutaneous pen (Lantus Solostar U-100 Insulin) lancets 33 gauge #100 ea 03/24/25 Rx metformin 750 mg tablet,extended 1,500 mg (2 x 750 mg) PO DAILY #60 03/24/25 Rx release 24 hr tabs Patient History Medical History Type 2 diabetes mellitus with diabetic polyneuropathy Corns and callosities Social History Smoking Status: Never smoker Tobacco Type: Smokeless Tobacco (Dip or Chew) Second Hand Exposure: No; Do You Dip or Chew Tobacco: Yes; Hx Alcohol Use: No Hx Substance Use: No Preferred Language: Turkmen Communication Ability: Effective Visual Impairment: Limited Hearing Ability: Normal Furnace Mason Required: No Beliefs That Will Affect Care: None marital status: Single Current Living Situation: Significant Other Current Living Situation Comment: lives at home with girlfriendTory current occupational status: employed 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 RX M.I.C. --- --------- --- --------- Ampicillin S 0.12 Azithromycin R >2 Cefepime S <=0.25 Cefotaxime S <=0.25 Ceftriaxone S <=0.25 Chloramphenicol S 4 Clindamycin S <=0.5 R >0.5 Daptomycin S 1 Erythromycin S <=0.5 R >0.5 Oxacillin S 0.5 Penicillin S 0.06 Tetracycline S <=4 Trimeth/Sulfa S <=0.5/9.5 Vancomycin S 2 S 0.5 S = SENSITIVE I = INTERMEDIATE R = RESISTANT Diagnostic Findings FINDINGS: There is no MRI evidence of acute fracture. Again seen is postsurgical change from amputation of the fifth toe through the metatarsophalangeal joint. There is no marrow change identified typical for osteomyelitis. No bony erosion is seen. Mild degenerative change is noted in the forefoot. Soft tissue edema is seen throughout the forefoot. No organized fluid collection is identified to suggest abscess. There are thin pockets of subcutaneous fluid at the dermis involving the first toe, and on the plantar aspect of the fourth and fifth toes suggesting small bullae/blisters. Imaged portions of the plantar fascia are normal in appearance. Imaged portions of the flexor/extensor tendons are normal in appearance. IMPRESSION: 1. No acute bony abnormality is identified. Specifically, there is no MRI evidence of osteomyelitis. 2. Again seen is postsurgical change from 5th toe amputation. 3. Soft tissue edema is noted throughout the forefoot. Correlate clinically for evidence of cellulitis. 4. There are crescentic pockets the fluid at the dermal surface in the first toe and along the plantar aspect of the fourth and fifth toes. The appearance suggests fluid filled bullae/blisters. Clinical correlation will be essential.
[2025-03-24] MEDS ORDERED: ZOLPIDEM TARTRATE 5 MG TAB PO PRN (12:14)
[2025-03-24 13:05] VITALS: BP 148/92; PULSE 85; TEMP 98.1; O2SAT 95
--- NOTE | 2025-03-24 13:06 | Hospitalist Progress Note ---
Date of Service March 24, 2025 Assessment & Plan (1) Diabetic infection of right foot: Plan: Diabetic Right foot infection Cellulitis of right lower limb--POA Failed outpatient antibiotic treatment H/O osteomyelitis --Foot CT:Amputation of fifth toe, distal to metatarsal bone. Mild subcutaneous edema is noted involving foot. Inferior and posterior calcaneal spur seen. No other osseous abnormality seen. --Foot MRI: No acute bony abnormality is identified. Specifically, there is no MRI evidence of osteomyelitis. Again seen is postsurgical change from 5th toe amputation. Soft tissue edema is noted throughout the forefoot. Correlate clinically for evidence of cellulitis. There are crescentic pockets the fluid at the dermal surface in the first toe and along the plantar aspect of the fourth and fifth toes. The appearance suggests fluid filled bullae/blisters. Clinical correlation will be essential. --Nasal MRSA: Negative --Wound culture: Mixed probable skin microbiota --Blood cultures: Negative to date --Continue IV cefepime, doxycycline>> IV cefazolin Appreciate orthopedics, infectious disease input Plan to transition to oral antibiotics on discharge Follows with podiatry Dr. Stanton as outpatient Continue wound care Plan to be discharged home today Hypertension Continue lisinopril Monitor blood pressure Hyperlipidemia Continue atorvastatin DM II Uncontrolled HbA1c 9.4 Continue insulin while hospitalized Monitor blood glucose levels DVT Px: SCDs for now Re: Bleeding toe wounds Code Status Full code Disposition Home Admission and Anticipated Discharge Date Admission Date: March 21, 2025 Subjective Patient is seen and examined at bedside Reports poor sleep while hospitalized Prefers to be discharged home Denies any right foot pain Also denies any chest pain, dyspnea, nausea, vomiting, abdominal pain Review of Systems Review of Systems: All systems reviewed & are unremarkable except as noted in Subjective Physical Exam Physical Exam: Physical Exam: Vitals signs as noted above General Appearance:Overweight, no apparent distress Head: normocephalic, Atraumatic Eyes: normal inspection, EOMI Neck: supple, Trachea midline Respiratory/Chest: Normal breath sounds, CTA, No accessory muscle use Cardiovascular: S1, S2, No murmur Abdomen/GI:Soft, Non tender, protuberant, Bowel sounds present Extremities/Musculoskeletal:normal inspection, no edema, Right foot in dressing Neurologic/Psych:AAOX3, grossly no focal neurological deficits Skin: normal color, warm Results & Data Results & Data Vital Signs (Past 12 Hours) Vital Signs Temp Pulse Resp BP Pulse Ox O2 Del Method 03/24/25 07:21 36.5 C 73 18 145/78 H 94 Room Air
--- NOTE | 2025-03-24 14:17 | Discharge Summary ---
Date of Service March 24, 2025 Admission HPI Per Admitting Provider History obtained from patient and records. Medical history significant for hypertension, hyperlipidemia, DM 2 insulin requiring, DM neuropathy, GERD, past tobacco abuse. Last confinement 2020 for diabetic foot infection/toe osteomyelitis. Patient underwent right fifth toe amputation and tenosynovectomy. Patient dropped something heavy on his right foot few weeks ago. Last week, patient noted toenail falling off after stubbing toe with subsequent purulent bloody drainage more than a week ago. Patient seen evaluated at [facility] practice clinician office 4 days ago. Wound with moderate to severe serous drainage noted on right 2nd, 3rd, and 4th toes. Debridement done at the office. Patient prescribed Keflex course. Patient noted worsening swelling of the toe wounds with drainage. No fever, no chills. No chest pain, no SOB. Ceftriaxone administered at the ER. 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 Admission Exam Per Admitting Provider GENERAL: Comfortable, pleasant, obese, no respiratory distress SKIN: Normal color, warm HEENT: Partial alopecia, bespectacled, pale palpebral conjunctivae, no ptosis, moist buccal mucosa NECK : Supple, no tenderness CHEST : CTA, no tenderness HEART : RRR, no obvious murmurs ABDOMEN: Some distention, nontender EXTREMITIES : Tender, erythematous 2nd, 3rd, and 4th toes of the right foot with necrotic spots and scant drainage, amputation stump right fifth toe, no LE swelling/tenderness, palpable pulses NEUROLOGIC : Coherent, no facial asymmetry, no other gross focality Principal Diagnosis Diabetic Right foot infection Cellulitis of right lower limb Uncontrolled diabetes mellitus Discharge Data Allergies Allergy/AdvReac Type Severity Reaction Status Date / Time No Known Allergies Allergy Unknown Verified 12/06/22 17:49 Consultations 03/21/25 23:39 ED Decision to Admit Stat 03/22/25 00:11 Consult Orthopedic Surgery Routine 03/23/25 15:04 Consult Infectious Diseases Routine Procedures Performed Laboratory Results WBC 7.32 K/ul (4.8-10.8) 03/23/25 06:21 RBC 4.76 M/uL (4.70-6.10) 03/23/25 06:21 Hgb 15.2 g/dL (14.0-18.0) 03/23/25 06:21 Hct 43.4 % (42.0-52.0) 03/23/25 06:21 MCV 91.2 fL (80.0-100.0) 03/23/25 06:21 MCH 31.9 pg (25.0-34.0) 03/23/25 06:21 MCHC 35.0 g/dL (32.0-36.0) 03/23/25 06:21 RDW Std Deviation 42.0 fL (36.4-46.3) 03/23/25 06:21 RDW Coeff of Lalitha 12.7 % (11.5-14.5) 03/23/25 06:21 Plt Count 240 K/uL (130-400) 03/23/25 06:21 MPV 9.1 fL (9.4-12.4) L 03/23/25 06:21 Immature Gran % (Auto) 0.2 % 03/22/25 06:37 Neut % (Auto) 65.8 % 03/22/25 06:37 Lymph % (Auto) 22.9 % 03/22/25 06:37 [place] % (Auto) 9.7 % 03/22/25 06:37 Eos % (Auto) 0.8 % 03/22/25 06:37 Baso % (Auto) 0.6 % 03/22/25 06:37 Neut # (Auto) 5.87 K/uL (1.40-6.50) 03/22/25 06:37 Lymph # (Auto) 2.04 K/uL (1.20-3.40) 03/22/25 06:37 [place] # (Auto) 0.86 K/uL (0.11-0.59) H 03/22/25 06:37 Eos # (Auto) 0.07 K/uL (0.00-0.50) 03/22/25 06:37 Baso # (Auto) 0.05 K/uL (0.00-0.20) 03/22/25 06:37 Immature Gran # (Auto) 0.02 K/uL (0.01-0.20) 03/22/25 06:37 ESR 25 mm/hr (0-20) H 03/21/25 22:54 Sodium 137 mmol/L (136-145) 03/23/25 06:21 Potassium 4.0 mmol/L (3.5-5.1) 03/23/25 06:21 Chloride 103 mmol/L (98-107) 03/23/25 06:21 Carbon Dioxide 26 mmol/L (21-32) 03/23/25 06:21 Anion Gap 8 (3-11) 03/23/25 06:21 BUN 11 mg/dl (6-23) 03/23/25 06:21 Creatinine 0.88 mg/dl (0.6-1.4) 03/23/25 06:21 Est Cr Clr Drug Dosing 111.7 ml/min 03/23/25 06:21 eGFR 99.05 03/23/25 06:21 BUN/Creatinine Ratio 12.5 (10-20) 03/23/25 06:21 Glucose 98 mg/dl (70-99(Fasting)) 03/23/25 06:21 POC Glucose 145 mg/dl (70-99) H 03/24/25 11:51 Estimat Average Glucose 223 mg/dl 03/22/25 06:37 Hemoglobin A1c 9.4 % (4.5-5.6) H 03/22/25 06:37 Calcium 9.4 mg/dl (8.6-10.3) 03/23/25 06:21 Magnesium 1.8 mg/dl (1.7-2.4) 03/23/25 06:21 Total Bilirubin 0.6 mg/dl (0.2-1.0) 03/21/25 22:54 AST 15 U/L (13-39) 03/21/25 22:54 ALT 10 U/L (7-52) 03/21/25 22:54 Alkaline Phosphatase 103 U/L (34-104) 03/21/25 22:54 C-Reactive Protein 1.87 mg/dl (0-0.5) H 03/21/25 22:54 Total Protein 7.7 gm/dl (6.0-8.3) 03/21/25 22:54 Albumin 4.5 gm/dl (3.4-5.0) 03/21/25 22:54 Globulin 3.2 gm/dl (2.5-4.0) 03/21/25 22:54 Albumin/Globulin Ratio 1.4 (0.9-2) 03/21/25 22:54 Nasal Screen MRSA (PCR) Negative (Negative) 03/22/25 14:00 Impressions Foot X-Ray 03/21/25 22:17 RIGHT FOOT 3 VIEWS CLINICAL HISTORY: Sores on the second and third toes. Infection. FINDINGS: 3 views of the right foot are compared to study dated 11/05/[address] of the foot dated 02/21/2021. The skeletal structures are osteopenic. No fracture is seen. There is postsurgical change from fifth toe resection through the metatarsophalangeal joint. No bony erosion or periostitis is identified. There are large dorsal and plantar spurs. A high arch is incidentally noted. Mild arthritic change is seen throughout the foot. Soft tissue swelling is noted in the forefoot. IMPRESSION: 1. Soft tissue swelling with no acute bony abnormality identified. 2. Postsurgical and mild degenerative change as above. 3. Large heel spurs. Electronically signed by: Johnny Bullock M.D. 03/22/2025 7:[address] 03/22/25 00:10 EXAM: CT foot RT w con CLINICAL HISTORY: swelling TECHNIQUE: Contiguous axial CT images of right foot were obtained with intravenous contrast. Coronal and sagittal reconstructions were likewise performed and indicated to increase the sensitivity for detecting clinically relevant pathology. CT scan was performed according to ALARA (as low as reasonably achievable). COMPARISON: 02/21/2021 07:49:32 FURNITURE MANAGER FINDINGS: Amputation of fifth toe, distal to metatarsal bone. Mild subcutaneous edema is noted involving foot. Inferior and posterior calcaneal spur seen. No acute fracture or dislocation. No destructive osseous lesion. The visualized muscles and tendons appear grossly unremarkable. No cortical destruction to suggest osteomyelitis. No abscess formation. No significant joint effusion. There are no soft tissue masses. Normal subcutaneous adipose space. IMPRESSION: Amputation of fifth toe, distal to metatarsal bone. Mild subcutaneous edema is noted involving foot. Inferior and posterior calcaneal spur seen. No other osseous abnormality seen. Electronically signed by Jordon Hernandez 03-22-2025 02:20 AM Foot MRI 03/22/25 09:45 MRI OF THE RIGHT FOREFOOT WITHOUT IV CONTRAST CLINICAL HISTORY: Right foot/toe infection. COMPARISON STUDY: CT scan of the right foot dated 03/22/2025. Right foot x-ray dated 03/21/2025. TECHNIQUE: MRI of the right forefoot is performed utilizing various T1 and T2- weighted sequences in the axial, sagittal, and coronal planes. IV contrast was not administered for this examination. FINDINGS: There is no MRI evidence of acute fracture. Again seen is postsurgical change from amputation of the fifth toe through the metatarsophalangeal joint. There is no marrow change identified typical for osteomyelitis. No bony erosion is seen. Mild degenerative change is noted in the forefoot. Soft tissue edema is seen throughout the forefoot. No organized fluid collection is identified to suggest abscess. There are thin pockets of subcutaneous fluid at the dermis involving the first toe, and on the plantar aspect of the fourth and fifth toes suggesting small bullae/blisters. Imaged portions of the plantar fascia are normal in appearance. Imaged portions of the flexor/extensor tendons are normal in appearance. IMPRESSION: 1. No acute bony abnormality is identified. Specifically, there is no MRI evidence of osteomyelitis. 2. Again seen is postsurgical change from 5th toe amputation. 3. Soft tissue edema is noted throughout the forefoot. Correlate clinically for evidence of cellulitis. 4. There are crescentic pockets the fluid at the dermal surface in the first toe and along the plantar aspect of the fourth and fifth toes. The appearance suggests fluid filled bullae/blisters. Clinical correlation will be essential. Electronically signed by: Johnny Bullock M.D. 03/22/2025 7:17 PM Ordered Studies 03/22/25 00:10 CT foot RT w con Stat 03/22/25 09:45 MRI Foot [MR foot RT w/o con] Routine Hospital Course (1) Diabetic infection of right foot: (2) DM (diabetes mellitus): Diabetic Right foot infection Cellulitis of right lower limb--POA Failed outpatient antibiotic treatment H/O osteomyelitis --Foot CT:Amputation of fifth toe, distal to metatarsal bone. Mild subcutaneous edema is noted involving foot. Inferior and posterior calcaneal spur seen. No other osseous abnormality seen. --Foot MRI: No acute bony abnormality is identified. Specifically, there is no MRI evidence of osteomyelitis. Again seen is postsurgical change from 5th toe amputation. Soft tissue edema is noted throughout the forefoot. Correlate clinically for evidence of cellulitis. There are crescentic pockets the fluid at the dermal surface in the first toe and along the plantar aspect of the fourth and fifth toes. The appearance suggests fluid filled bullae/blisters. Clinical correlation will be essential. --Nasal MRSA: Negative --Wound culture: Mixed probable skin microbiota --Blood cultures: Negative to date --Continue IV cefepime, doxycycline>> IV cefazolin Appreciate orthopedics, infectious disease input Plan to transition to oral antibiotics on discharge Follows with podiatry Dr. Stanton as outpatient Continue wound care Plan to be discharged home today Hypertension Continue lisinopril Monitor blood pressure Hyperlipidemia Continue atorvastatin DM II Uncontrolled HbA1c 9.4 Patient admits to missing his evening dose on most days Continue insulin while hospitalized Monitor blood glucose levels His Lantus dose will be increased to 22 units daily on discharge His metformin will be transition to extended release 1500 mg daily DVT Px: SCDs for now Re: Bleeding toe wounds Code Status Full code Disposition Home Total Time Total Time Spent Total Time Spent (In Minutes): 55 minutes Discharge Plan Discharge Items Patient Disposition: Home - Self-Care Reason For Visit: DM FOOT INFECTION Discharge Diagnosis: Diabetic Right foot infection Cellulitis of right lower limb Uncontrolled diabetes mellitus Condition on Discharge: Good Activity: Per Instructions section Exercise/Sports: Wait until after follow-up appointment Non-emergency contact: Primary Care Provider and Specialist Call non-emergency contact if: you have any medication questions, your symptoms worsen, your pain is concerning for you and you have a fever Follow-up/Referrals: William Basurto MD [Primary Care Provider] - (Date & Time 03/31/2025 10:00 AM Provider: Alondra Grier PA-C [facility] ) Diet: Carb Consistent or DM2 and Heart Healthy Addtl Attending Provider Instructions: --Follow-up with your primary care physician on 03/31/2025 10:00 AM --Follow-up with your practice clinician Dr. Stanton in 1 week as scheduled --Follow-up with wound clinic as recommended --Your final blood cultures are pending at the time of discharge. Follow-up with your physician for results. --Complete the antibiotic course--cefadroxil as recommended by infectious disease for 2 weeks. -- Monitor your blood glucose levels regularly as advised. Discuss with your primary care physician for further adjustment of medications as needed. Seek immediate medical attention if your symptoms reoccur or worsen Please review medication list provided on discharge for any medication changes as instructed. Please call if you have any questions or problems. You can reach a [facility] hospitalist on duty at [facility] 24 hours a day by calling [phone] Pending Studies at Discharge: Yes Studies:: Blood Culture Stand-Alone Forms: My [facility], Smoking Cessation Medications and DC Order Prescriptions: New (DME) blood-glucose meter Misc See Rx Instructions .Route Qty: 1 0RF Rx Instructions: Check Blood glucose level two times per day as directed (DME) OneTouch Verio test strips Strip See Rx Instructions .Route Qty: 100 1RF Rx Instructions: Check Blood glucose level two times per day as directed (DME) lancets 33 gauge misc See Rx Instructions .Route Qty: 100 1RF Rx Instructions: Check Blood glucose level two times per day as directed Advanced Probiotic 625 mg (10 billion cell) Capsule 1 cap PO DAILY Qty: 15 0RF metformin 750 mg tablet extended release 24 hr 1,500 mg PO DAILY Qty: 60 1RF cefadroxil 500 mg capsule 500 mg PO BID Qty: 28 0RF Continued atorvastatin 20 mg tablet 20 mg PO QAM lisinopril 5 mg tablet 5 mg PO QAM (DME) lancets [OneTouch Delica Lancets] 33 gauge misc See Rx Instructions .Route Qty: 100 0RF Rx Instructions: As directed (DME) pen needle, diabetic [Pen Needle] 32 gauge x 5/32" needle See Rx Instructions .Route Qty: 50 0RF Rx Instructions: As directed (DME) OneTouch Verio test strips Strip See Rx Instructions .Route Qty: 100 0RF Rx Instructions: As directed Changed insulin glargine [Lantus Solostar U-100 Insulin] 100 unit/mL (3 mL) Insulin Pen 22 unit SC QAM Qty: 15 0RF Discontinued metformin 1,000 mg tablet 1,000 mg PO BID Discharge Orders: Discharge Order (Routine); Ordered 03/24/25 Ordered By: Pratik Reese/Other Patient Handouts: Nutrition for Wound Healing, Managing Type 2 Diabetes Admission Data Admit Date/Time: 03/21/25 23:47 Attending Provider: Pratik Arroyo Admit Provider: Shreyas Fischer Primary Care Provider: William Basurto Other Providers: Juanjo Espinoza; Shreyas Fischer; Ezra Callejas; Francisco Neville; Johan Polanco I.; José Miguel Rosen II; Ines Bull; Philippe Dodge; Killian Figueredo; Madi Choi
[2025-03-25] MEDS ORDERED: ADVANCED PROBIOTIC 625 MG CAPSULE PO SCH (09:00)
== END 2025-03-24 16:19 | disposition home or self-care (01) | DRG 638 ==
LOC: ED 22:00 → 3W 23:47